=== PATIENT | male | born 1965 | race Caucasian/White ===

== ENCOUNTER 2022-01-26 19:05 | Inpatient (IN) | payer OTHER, SELFPAY ==
--- NOTE | ~2022-01-26 | XR_ITS ---
EXAMINATION: XR CHEST CLINICAL INFORMATION: Leukocytosis COMPARISON: None TECHNIQUE: Frontal view of the chest was obtained. FINDINGS: No significant abnormality is noted involving the heart, lungs, mediastinum, bony thorax or soft tissues. XR/XR chest 1V IMPRESSION: Unremarkable examination.
[2022-01-26 19:32] VITALS: BP 121/70; PULSE 65; RESP 18; TEMP 36.5; O2SAT 96; BMI 31.1
--- NOTE | 2022-01-26 21:04 | ED.PSYCH ---
HPI - Psych General Chief Complaint: Psychiatric Symptoms Stated Complaint: SI, CRISIS, poked himself in the eye as well Time Seen by Provider: 01/26/22 19:48 Source: patient Mode of arrival: ambulatory Limitations: no limitations History of Present Illness HPI Narrative: 57-year-old male with a PMHx of depression on Prozac, presenting with depression, requesting detox, and left eye injury. Patient reports that he was using heroin today and then he believes that he dosed off and poked himself in the eye with his finger. He states that since then his eye has been irritated, he has been having trouble seeing out of it. He denies any foreign body sensation. He also reports that he has been dealing with increasing depression recently. He tells me that he had 2 family members kill themselves recently and that he believes that this has been contributing. Tells me he wants heroin detox and if we dont help him states then he will kill himself. Denies HI. Denies visual, auditory and tactile hallucinations. Denies medical complaints other than left eye discomfort. Related Data Home Medications Medication Instructions Recorded Confirmed fluoxetine 20 mg capsule (Prozac) 40 mg PO DAILY 01/26/22 01/26/22 nicotine 21 mg/24 hr daily 1 patch transdermal DAILY 01/26/22 01/26/22 transdermal patch quetiapine 50 mg tablet (Seroquel) 50 mg PO DAILY 01/26/22 01/26/22 Allergies Allergy/AdvReac Type Severity Reaction Status Date / Time lisinopril [LISINOPRIL] Allergy Unknown KIDNEY Unverified 01/21/20 15:31 FAILURE codeine [CODEINE] AdvReac Unknown RASH Unverified 01/21/20 15:31 hydrocodone [From VICODIN] AdvReac Unknown RASH Unverified 01/21/20 15:31 ibuprofen [IBUPROFEN] AdvReac Unknown EDEMA Unverified 01/21/20 15:31 Review of Systems Review of Systems: Constitutional : No Fever, No Chills ENT/Mouth : No Ear Pain, No Nasal Congestion, No sore throat Eyes: + Eye Pain, No Swelling, No Redness Cardiovascular : No Chest Pain, No SOB Respiratory : No Cough, No Sputum, No Dyspnea Gastrointestinal : No Nausea, No Vomiting, No Diarrhea, No Hematochezia, No Melena Genitourinary : No Dysuria, No Urinary Frequency, No Hematuria Musculoskeletal : No Myalgias Skin : No Skin Lesions, No rash Neuro : No Weakness, No Numbness, No Paresthesias, No Dizziness, No Headache Psych : positive Anxiety, positive Depression, positive SI/HI All other systems reviewed and are negative Yes all other systems are reviewed and are negative [facility] Past Medical History Attestation statement: The following information was validated with the patient. Source: old records reviewed and nursing notes reviewed Social History Social History Advance Directives: No Advance Directives Information Provided: No Physical Exam Vital Signs: Vital Signs: Last Vital Signs Temp 97.7 F 01/26/22 19:32 Pulse 65 01/26/22 19:32 Resp 18 01/26/22 19:32 BP 121/70 01/26/22 19:32 Pulse Ox 96 01/26/22 19:32 O2 Del Method 01/26/22 19:32 BMI result Body Mass Index 31.1 vss Appearance: Alert.? Oriented X3.? No acute distress.?Unkempt Head: Normocephalic, atraumatic, no step-offs or deformities Eyes: Pupils equal, round and reactive to light.? ENT: Pharynx normal.? Neck: Normal inspection.? Neck supple.? CVS: Normal heart rate and rhythm.? Pulses normal.? Respiratory: No respiratory distress.? Breath sounds normal.? Abdomen: Soft and nontender.? Skin: Skin warm and dry.? Normal skin color.? Normal skin turgor.? Extremities: No lower extremity edema.? No calf ttp. 5/5 strength to bilateral upper and lower extremities Neuro: Oriented X 3.? No motor deficit.? No sensory deficit. CN 2-12 intact Course Reevaluation(s) Reevaluation #1: Patient's CBC with leukocytosis, likely reactive, patient is noted to have a new kidney injury BUN of 23 and creatinine of 1.92, currently being hydrated with 2 L of fluids. CPK 2360 concerning for rhabdomyolysis. Patient with corneal abrasion on fluorescein staining, will be given erythromycin ointment for eyes. No signs of glob rupture or sidels sign. Patient continues to touch eye. Time: 00:10 Reevaluation #2: Patient will be admitted to hospital for further evaluation and tx. Time: 00:20 MDM - Psych MDM Narrative Medical decision making narrative: 2100 57-year-old male presents with vague SI complaints and left eye pain status post dosing often using heroin, thinks he may have poked his eye. Physical examination benign. Will rule out corneal abrasion, unlikely that this is a globe rupture. No signs of foreign body in eye. Will do a fluorescein stain with tetracaine. Unlikely wet macular degeneration or closed angle glaucoma. Plan at this time is medical clearance and evaluation by the behavioral health team. Medical Records Attestation: I reviewed the patient's medical records. Lab Data Attestation: I reviewed the patient's lab results. Result diagrams: 01/26/22 22:08 01/26/22 22:08 Labs: Lab Results 01/26/22 01/26/22 01/26/22 Range/Units 22:08 22:08 22:08 WBC 20.2 H (4.8-10.8) X10*3/uL RBC 5.48 (4.60-5.80) X10*6/uL Hgb 16.0 (14.0-18.0) g/dl Hct 46.5 (42.0-52.0) % MCV 84.9 (80.0-98.0) fL MCH 29.2 (27.0-33.0) pg MCHC 34.4 (31.0-36.0) g/dl RDW 12.5 (11.0-16.0) % Plt Count 243 (160-400) X10*3/uL MPV 8.7 L (9.4-12.4) fL Immature Gran % (Auto) 0.4 (0.0-0.4) % Neut % (Auto) 64.9 (45-73) % Lymph % (Auto) 25.3 (20-40) % [place] % (Auto) 8.2 (2-11) % Eos % (Auto) 0.7 (0-4) % Baso % (Auto) 0.5 (0-2) % Lymph # (Auto) 5.1 H (1.2-4.9) X10*3/uL [place] # (Auto) 1.7 H (0.1-1.2) X10*3/uL Eos # (Auto) 0.1 (0.0-0.4) X10*3/uL Baso # (Auto) 0.1 (0.0-0.2) X10*3/uL Abs Immat Gran (auto) 0.08 H (0.00-0.03) X10*3/uL Absolute Neuts (auto) 13.1 H (2.0-8.3) x10*3/uL Absolute Nucleated RBC 0.000 (0.0-0.012) X10*3/uL Nucleated RBC % (auto) 0.0 (0.0-0.2) /100WBC Smear Tech's Comments VERIFIED Sodium 133 L (135-145) mmol/L Potassium 4.0 (3.3-5.1) mmol/L Chloride 98 (96-108) mmol/L Carbon Dioxide 20 L (22-29) mmol/L Anion Gap 19 (12-20) BUN 23 H (9-16) mg/dL Creatinine 1.92 H (0.5-1.4) mg/dL Estim Creat Clear Calc 46.5 Estimated GFR 37 Random Glucose 136 H (60-115) mg/dL Calcium 9.4 (8.4-10.2) mg/dL Magnesium 2.4 (1.6-2.6) mg/dL Total Bilirubin 0.9 (0.0-1.0) mg/dL AST 51 H (5-37) U/L ALT 61 H (0-40) U/L Alkaline Phosphatase 76 (39-117) U/L Total Creatine Kinase 2360 H (38-174) U/L Total Protein 7.2 (6.5-8.0) g/dL Albumin 4.2 (3.5-5.0) g/dL Salicylates < 5.0 L (15-30) mg/dL Acetaminophen < 1 (<30) mcg/mL Ethyl Alcohol < 10 mg/dL COVID-19 (YANICK) (Negative) COVID-19 Clin Com 01/26/22 Range/Units 22:10 WBC (4.8-10.8) X10*3/uL RBC (4.60-5.80) X10*6/uL Hgb (14.0-18.0) g/dl Hct (42.0-52.0) % MCV (80.0-98.0) fL MCH (27.0-33.0) pg MCHC (31.0-36.0) g/dl RDW (11.0-16.0) % Plt Count (160-400) X10*3/uL MPV (9.4-12.4) fL Immature Gran % (Auto) (0.0-0.4) % Neut % (Auto) (45-73) % Lymph % (Auto) (20-40) % [place] % (Auto) (2-11) % Eos % (Auto) (0-4) % Baso % (Auto) (0-2) % Lymph # (Auto) (1.2-4.9) X10*3/uL [place] # (Auto) (0.1-1.2) X10*3/uL Eos # (Auto) (0.0-0.4) X10*3/uL Baso # (Auto) (0.0-0.2) X10*3/uL Abs Immat Gran (auto) (0.00-0.03) X10*3/uL Absolute Neuts (auto) (2.0-8.3) x10*3/uL Absolute Nucleated RBC (0.0-0.012) X10*3/uL Nucleated RBC % (auto) (0.0-0.2) /100WBC Smear Tech's Comments Sodium (135-145) mmol/L Potassium (3.3-5.1) mmol/L Chloride (96-108) mmol/L Carbon Dioxide (22-29) mmol/L Anion Gap (12-20) BUN (9-16) mg/dL Creatinine (0.5-1.4) mg/dL Estim Creat Clear Calc Estimated GFR Random Glucose (60-115) mg/dL Calcium (8.4-10.2) mg/dL Magnesium (1.6-2.6) mg/dL Total Bilirubin (0.0-1.0) mg/dL AST (5-37) U/L ALT (0-40) U/L Alkaline Phosphatase (39-117) U/L Total Creatine Kinase (38-174) U/L Total Protein (6.5-8.0) g/dL Albumin (3.5-5.0) g/dL Salicylates (15-30) mg/dL Acetaminophen (<30) mcg/mL Ethyl Alcohol mg/dL COVID-19 (YANICK) Negative (Negative) COVID-19 Clin Com See Note Critical Care Time Critical Care Time Critical Care Time: No Discharge Plan Discharge Clinical Impression: Polysubstance abuse, Rhabdomyolysis, Abrasion, corneal Patient Disposition: Admitted As Inpatient
[2022-01-26 22:16] LABS: Basophils Absolute Auto 0.1 X10*3/uL (0.0-0.2); Basophils Percent Auto 0.5 % (0-2); Eosinophils Absolute Auto 0.1 X10*3/uL (0.0-0.4); Eosinophils Percent Auto 0.7 % (0-4); Hematocrit 46.5 % (42.0-52.0); Imm Gran Abs Auto 0.08 X10*3/uL (0.00-0.03); Imm Gran Pct Auto 0.4 % (0.0-0.4); Lymphocytes Absolute Auto 5.1 X10*3/uL (1.2-4.9); Lymphocytes Percent Auto 25.3 % (20-40); MANUAL DIFF FLAG SCAN; Mean Corpuscular HGB Conc 34.4 g/dl (31.0-36.0); Mean Corpuscular Hemoglobin 29.2 pg (27.0-33.0); Mean Corpuscular Volume 84.9 fL (80.0-98.0); Mean Platelet Volume 8.7 fL (9.4-12.4); Monocytes Absolute Auto 1.7 X10*3/uL (0.1-1.2); Monocytes Percent Auto 8.2 % (2-11); Neutrophils Absolute Auto 13.1 x10*3/uL (2.0-8.3); Neutrophils Percent Auto 64.9 % (45-73); Platelet Count 243 X10*3/uL (160-400); Red Blood Count 5.48 X10*6/uL (4.60-5.80); Red Cell Distribution Width 12.5 % (11.0-16.0); SCAN SMEAR FLAG 1; White Blood Count 20.2 X10*3/uL (4.8-10.8)
[2022-01-26 22:29] LABS: Ethanol < 10 mg/dL
[2022-01-26 22:31] LABS: COVID-19 Test Negative (Negative)
[2022-01-26 22:32] LABS: Acetaminophen LAB < 1 mcg/mL (<30); Alanine Aminotransferase 61 U/L (0-40); Albumin Level 4.2 g/dL (3.5-5.0); Alkaline Phosphatase 76 U/L (39-117); Anion Gap 19 (12-20); Aspartate Amino Transferase 51 U/L (5-37); Bilirubin Total 0.9 mg/dL (0.0-1.0); Blood Urea Nitrogen 23 mg/dL (9-16); Calcium 9.4 mg/dL (8.4-10.2); Carbon Dioxide 20 mmol/L (22-29); Chloride 98 mmol/L (96-108); Creatinine Clr Calc Pharmacy 46.5; Estimated Glomerular Filt Rate 37; Glucose Random 136 mg/dL (60-115); Magnesium 2.4 mg/dL (1.6-2.6); Salicylate < 5.0 mg/dL (15-30); Sodium 133 mmol/L (135-145); Total Protein 7.2 g/dL (6.5-8.0)
[2022-01-26 22:39] LABS: SLIDE REVIEW VERIFIED
--- NOTE | 2022-01-26 22:55 | PHA.MEDREC ---
Pharmacy Consult ? Medication Reconciliation Pharmacy has completed the medication reconciliation. Verbal list obtained from ID pt states that he has not taken his meds for 2 months
--- NOTE | 2022-01-27 | ECG_ITS ---
Test Reason : TACHYCARDIA Blood Pressure : / mmHG Vent. Rate : 051 BPM Atrial Rate : 051 BPM P-R Int : 182 ms QRS Dur : 078 ms QT Int : 434 ms P-R-T Axes : 045 065 032 degrees QTc Int : 400 ms Sinus bradycardia Otherwise normal ECG When compared with ECG of 14-MAR-2004 19:55, Vent. rate has decreased BY 35 BPM Referred By: Magdalena Gan Electronically Signed By:ROCIO GONZALEZ
[2022-01-27] MEDS: 0.9 % Sodium Chloride 1,000 ML 999 ML IV ×3 (00:10→01:48)
[2022-01-27] MEDS: Tetrahydrozoline HCl 0.05% Oph 15 ML DRPBTL 2 DROP EYE-BOTH (00:11)
[2022-01-27] MEDS: Fluorescein Sodium STRIP 1 STRIP EYE-BOTH (00:11)
--- NOTE | 2022-01-27 00:41 | PM.IMHP ---
History of Present Illness Date of Service: 01/27/22 Chief Complaint: eye pain, detox 57-year-old male with past medical history of heroin abuse presents to the hospital with complaints of left eye pain, as well as wanting detox. Patient reports that he was very high, was found on the street by EMS, after he was consuming heroin. Patient reports that he must have dozed off and poked himself in the Left eye. He denies any trauma or injury to the eye otherwise. He reports no use of contact lenses. And no contact with for an object. Is patient reports that he is interested in detoxing from heroin. Patient at this time denies any chest pain, no shortness of breath, no abdominal pain, no nausea or vomiting, no diarrhea constipation, no urinary symptoms and no lower extremity edema. No headache or change in vision, no numbness or weakness or tingling. On arrival to the ED patient with dynamic least stable no significant abnormal vitals Labs are significant for WBC count of 18.3, sodium 133, BUN of 23, creatinine of 1.92 with no baseline, CKD of 2360, AST of 51, ALT of 61, patient started on IV fluids, and will be admitted for further management Review of Systems Review of Systems: Yes all other systems are reviewed and are negative [facility] Medical History (Updated 01/27/22 @ 06:49 by Eliseo Argueta MD) Depression with anxiety Polysubstance abuse Family History (Updated 01/27/22 @ 06:46 by Eliseo Argueta MD) Other No family history of coronary artery disease Surgical History (Updated 01/27/22 @ 06:46 by Eliseo Argueta MD) No pertinent past surgical history Social History (Updated 01/27/22 @ 06:46 by Eliseo Argueta MD) Alcohol intake: current Use of substances other than those prescribed or required for medical reasons: Yes Substance Use Type: IV Drugs Advance Directives: No Advance Directives Information Provided: No Meds Allergies Allergy/AdvReac Type Severity Reaction Status Date / Time lisinopril [LISINOPRIL] Allergy Unknown KIDNEY Unverified 01/21/20 15:31 FAILURE codeine [CODEINE] AdvReac Unknown RASH Unverified 01/21/20 15:31 hydrocodone [From VICODIN] AdvReac Unknown RASH Unverified 01/21/20 15:31 ibuprofen [IBUPROFEN] AdvReac Unknown EDEMA Unverified 01/21/20 15:31 Active Medications: Current Medications Acetaminophen (Acetaminophen 325 Mg Tablet) 650 mg PO Q6H PRN PRN Reason: Pain, Mild (Pain Scale 1-3) Docusate Sodium (Docusate Sodium 100 Mg Capsule) 100 mg PO DAILY PRN PRN Reason: Constipation Enoxaparin Sodium (Enoxaparin Sodium 40 Mg/0.4 Ml Syringe) 40 mg SUBCUT Q24H [facility]INA Sodium Chloride (Ns) 1,000 mls @ 999 mls/hr IV .Q1H1M [facility] Stop: 01/27/22 01:15 Sodium Chloride (Ns) 1,000 mls @ 999 mls/hr IV .Q1H1M [facility] Stop: 01/27/22 01:15 Sodium Chloride (Ns) 1,000 mls @ 100 mls/hr IVCONT .Q10H [facility]ATARINA Ondansetron HCl (Ondansetron Hcl 4 Mg/2 Ml Vial) 4 mg IVPUSH Q8H PRN PRN Reason: Nausea and Vomiting Pharmacy Consult (Consult Rx Perform Med Rec) 1 each MISCELLANE ONCE PRN PRN Reason: Consult order Sodium Chloride (0.9 % Sodium Chloride Flush 3 Ml Syringe) 3 ml IVFLUSH QSHIFT [facility] Home Medications Medication Instructions Recorded Confirmed Last Taken Type fluoxetine 20 mg capsule (Prozac) 40 mg PO DAILY 01/26/22 01/26/22 Unknown History nicotine 21 mg/24 hr daily 1 patch transdermal DAILY 01/26/22 01/26/22 Unknown History transdermal patch quetiapine 50 mg tablet (Seroquel) 50 mg PO DAILY 01/26/22 01/26/22 Unknown History Physical Exam Vital Signs and Narrative: Vital Signs: Last Vital Signs Temp 97.7 F 01/26/22 19:32 Pulse 65 01/26/22 19:32 Resp 18 01/26/22 19:32 BP 121/70 01/26/22 19:32 Pulse Ox 96 01/26/22 19:32 O2 Del Method 01/26/22 19:32 BMI result Body Mass Index 31.1 Const: General: cooperative and no acute distress Orientation/consciousness: patient oriented x3 Eyes: Other: left eye very inflamed, is unable to open it fully, very sensitive to light, lacrimating Resp: Effort & Inspection: normal respiratory effort Auscultation: clear to auscultation bilaterally Cardio: Rate: regular rate Rhythm: regular rhythm GI: Palpation (GI): Soft to palpation Auscultation: normal bowel sounds Skin: General skin exam: no rashes or lesions noted Neuro: General: patient oriented x3 Cognition (Neuro): normal cognition Extrem: General: Yes normal to inspection and Yes no pedal edema Results Labs CBC and Chem 7: 01/27/22 01:15 01/26/22 22:08 Labs: Laboratory Results - last 24 hr 01/26/22 01/26/22 01/26/22 22:08 22:08 22:08 MCV 84.9 MCH 29.2 MCHC 34.4 RDW 12.5 Plt Count 243 MPV 8.7 L Immature Gran % (Auto) 0.4 Neut % (Auto) 64.9 Lymph % (Auto) 25.3 [place] % (Auto) 8.2 Eos % (Auto) 0.7 Baso % (Auto) 0.5 Lymph # (Auto) 5.1 H [place] # (Auto) 1.7 H Eos # (Auto) 0.1 Baso # (Auto) 0.1 Abs Immat Gran (auto) 0.08 H Absolute Neuts (auto) 13.1 H Absolute Nucleated RBC 0.000 Nucleated RBC % (auto) 0.0 Smear Tech's Comments VERIFIED Anion Gap 19 Estim Creat Clear Calc 46.5 Estimated GFR 37 Random Glucose 136 H Calcium 9.4 Magnesium 2.4 Total Bilirubin 0.9 AST 51 H ALT 61 H Alkaline Phosphatase 76 Total Creatine Kinase 2360 H Total Protein 7.2 Albumin 4.2 Salicylates < 5.0 L Acetaminophen < 1 Ethyl Alcohol < 10 COVID-19 (YANICK) COVID-19 Clin Com 01/26/22 22:10 MCV MCH MCHC RDW Plt Count MPV Immature Gran % (Auto) Neut % (Auto) Lymph % (Auto) [place] % (Auto) Eos % (Auto) Baso % (Auto) Lymph # (Auto) [place] # (Auto) Eos # (Auto) Baso # (Auto) Abs Immat Gran (auto) Absolute Neuts (auto) Absolute Nucleated RBC Nucleated RBC % (auto) Smear Tech's Comments Anion Gap Estim Creat Clear Calc Estimated GFR Random Glucose Calcium Magnesium Total Bilirubin AST ALT Alkaline Phosphatase Total Creatine Kinase Total Protein Albumin Salicylates Acetaminophen Ethyl Alcohol COVID-19 (YANICK) Negative COVID-19 Clin Com See Note Imaging Radiologist's Impressions: Impressions Chest X-Ray 01/26/22 23:22 IMPRESSION: Unremarkable examination. Assessment and Plan (1) Rhabdomyolysis: Qualifiers: Rhabdomyolysis type: non-traumatic Qualified Code(s): M62.82 - Rhabdomyolysis Status: Acute (2) Polysubstance abuse: Status: Acute (3) Abrasion, corneal: Qualifiers: Encounter type: initial encounter Laterality: left Qualified Code(s): S05.02XA - Injury of conjunctiva and corneal abrasion without foreign body, left eye, initial encounter Status: Acute (4) JAE (acute kidney injury): Status: Acute Plan 57-year-old male with past medical history of depression and anxiety presents to the hospital with complaints of eye pain as well as wanting to detox from drugs found to rhabdo, JAE as well as corneal abrasion # rhabdomyolysis - likely secondary to IV drug use, dehydration, - will start with IV fluids - follow CPK # JAE - likely secondary to dehydration - IV fluids - follow BMP # corneal abrasion - no evidence of foreign body, no presence of contact lenses - will treat with topical antibiotic as well as topical NSAIDs for pain control - if does not improve consider orbital CT to rule out foreign body although patient denies any direct trauma or injury to the eye and reports only poking himself in the eye while dosing of # polysubstance abuse - care team consulted # depression anxiety - continue mood stabilizers DVT prophylaxis: Lovenox Pt will require a minimum 2 night hospital stay for IV fluids Quality Stroke Does the patient have a stroke diagnosis?: No VTE Prior VTE?: No VTE Risk Level:: Medical - moderate - high VTE Device Contraindication: Treatment Not Tolerated VTE Drug Contraindication: N/A - Med Ordered
[2022-01-27] MEDS: Erythromycin Base 0.5% Oph Oin 1 GM TUBE 1 CM EYE-LEFT ×2 (01:47→09:17)
[2022-01-27 01:50] LABS: Basophils Absolute Auto 0.1 X10*3/uL (0.0-0.2); Basophils Percent Auto 0.4 % (0-2); Eosinophils Absolute Auto 0.2 X10*3/uL (0.0-0.4); Eosinophils Percent Auto 1.3 % (0-4); Hematocrit 45.2 % (42.0-52.0); Hemoglobin 15.4 g/dl (14.0-18.0); Imm Gran Abs Auto 0.07 X10*3/uL (0.00-0.03); Imm Gran Pct Auto 0.4 % (0.0-0.4); Lymphocytes Absolute Auto 5.7 X10*3/uL (1.2-4.9); Lymphocytes Percent Auto 30.9 % (20-40); MANUAL DIFF FLAG SCAN; Mean Corpuscular HGB Conc 34.1 g/dl (31.0-36.0); Mean Corpuscular Hemoglobin 28.9 pg (27.0-33.0); Mean Platelet Volume 8.9 fL (9.4-12.4); Monocytes Absolute Auto 1.5 X10*3/uL (0.1-1.2); Neutrophils Absolute Auto 10.8 x10*3/uL (2.0-8.3); Platelet Count 238 X10*3/uL (160-400); Red Blood Count 5.32 X10*6/uL (4.60-5.80); Red Cell Distribution Width 12.6 % (11.0-16.0); SCAN SMEAR FLAG 1; White Blood Count 18.3 X10*3/uL (4.8-10.8)
[2022-01-27] MEDS: Enoxaparin Sodium 40 MG/0.4 ML SYRINGE SUBCUT (01:50)
[2022-01-27] MEDS: Acetaminophen 325 MG TABLET 650 MG PO (01:51)
[2022-01-27 02:03] LABS: Lactic Acid 1.4 mmol/L (0.5-2.0)
[2022-01-27] MEDS: 0.9 % Sodium Chloride 1,000 ML 100 ML IVCONT ×3 (04:06→22:02)
[2022-01-27 06:06] VITALS: BP 99/60; PULSE 50; RESP 16; TEMP 36.7; O2SAT 96
[2022-01-27 07:07] LABS: Basophils Absolute Auto 0.1 X10*3/uL (0.0-0.2); Basophils Percent Auto 0.7 % (0-2); Eosinophils Absolute Auto 0.2 X10*3/uL (0.0-0.4); Eosinophils Percent Auto 1.4 % (0-4); Hematocrit 43.4 % (42.0-52.0); Hemoglobin 14.7 g/dl (14.0-18.0); Imm Gran Abs Auto 0.05 X10*3/uL (0.00-0.03); Imm Gran Pct Auto 0.4 % (0.0-0.4); Lymphocytes Absolute Auto 5.1 X10*3/uL (1.2-4.9); Lymphocytes Percent Auto 37.6 % (20-40); MANUAL DIFF FLAG SCAN; Mean Corpuscular HGB Conc 33.9 g/dl (31.0-36.0); Mean Corpuscular Hemoglobin 29.1 pg (27.0-33.0); Mean Corpuscular Volume 85.8 fL (80.0-98.0); Monocytes Absolute Auto 0.9 X10*3/uL (0.1-1.2); Monocytes Percent Auto 6.6 % (2-11); Neutrophils Absolute Auto 7.3 x10*3/uL (2.0-8.3); Neutrophils Percent Auto 53.3 % (45-73); Platelet Count 208 X10*3/uL (160-400); Red Blood Count 5.06 X10*6/uL (4.60-5.80); Red Cell Distribution Width 12.6 % (11.0-16.0); SCAN SMEAR FLAG 1; White Blood Count 13.6 X10*3/uL (4.8-10.8)
[2022-01-27 07:59] LABS: SLIDE REVIEW VERIFIED
[2022-01-27 08:03] LABS: Anion Gap 15 (12-20); Blood Urea Nitrogen 20 mg/dL (9-16); Calcium 8.4 mg/dL (8.4-10.2); Carbon Dioxide 18 mmol/L (22-29); Chloride 107 mmol/L (96-108); Creatinine Clr Calc Pharmacy 69.8; Estimated Glomerular Filt Rate 58; Glucose Random 113 mg/dL (60-115); Potassium 4.5 mmol/L (3.3-5.1); Sodium 135 mmol/L (135-145)
[2022-01-27] MEDS: FLUoxetine HCl 20 MG CAPSULE 40 MG PO (09:16)
[2022-01-27] MEDS: Nicotine 21 MG PATCH.TD24 TRANSDERMA (09:17)
--- NOTE | 2022-01-27 09:18 | PM.EVENT ---
Event Note Date of Service: 01/27/22 Event Note: The patient was seen and evaluated this morning Denies any suicidal ideation at this point Kidney function improving Reported mild symptoms of withdrawal Discussed about Suboxone and methadone, he preferred to start methadone and refuses Suboxone Care team and addiction team would follow
[2022-01-27 11:25] LABS: Appearance Urine Clear; Color Urine Yellow; Glucose Urine UA Negative (Negative); Leukocyte Esterase Urine Negative (Negative); Nitrite Urine Negative (Negative); PH 5.5 (5.0-9.0); Urine Blood Negative (Negative); Urine Ketones Negative (Negative); Urine Protein Negative (Neg-Trace)
[2022-01-27 11:31] LABS: Amphetamine Screen Urine Not Detected (Not Detect); Barbiturates, Urine Not Detected (Not Detect); Benzodiazepines Screen Urine Not Detected (Not Detect); Cannabinoid Screen Urine Not Detected (Not Detect); Cocaine Screen Urine POSITIVE (Not Detect); Fentanyl, urine POSITIVE (Not Detect); Opiate Screen Urine Not Detected (Not Detect); Phencyclidine Screen Urine Not Detected (Not Detect)
[2022-01-27] MEDS: methADONE HCl 20 MG/2 ML ORAL.CONC PO (12:46)
--- NOTE | 2022-01-27 13:32 | HO.ADDICT_ITS ---
History of Present Illness Date of Service: 01/27/2022 Chief Complaint: JAE, rhabdo Reason for Consult: OUD Requesting physician: Magdalena Gan Discussed with referring provider: Yes Sources of Information: patient interviewed and chart reviewed HPI Narrative: Patient is a 57 year old male currently medically admitted with JAE and rhabdomyolysis. Presented to the ED initially with reported suicidal ideation secondary to substance use. Patient see in room 15 of main ED. Sitting in recliner, awake, alrt, pleasant and engaged in interview. Reporting he has been using opiates since he was about 25--started off with oxycodone then progressed to heroin Currently using about 2 bundles (20 bags) daily. Denies any history of overdose Denies any other substance use, including alcohol one [facility] admission several years ago Longest period in recovery a few months on several occasions Currently prescribed SUboxone, however recently stopped taking them after he experienced what sounds like precipitated withdrawal. Was reporting withdrawal sx--runny nose, restlessness, body aches. Agreeable to methadone. Received 20mg X1--reporting positive effect. Review of Systems Constitutional: Reports as per HPI Diagnostics Vital Signs (24Hr): Vital Signs - 24 hr 01/26/22 19:32 01/27/22 06:06 Temperature 97.7 F 98.1 F Pulse Rate 65 50 Respiratory Rate 18 16 Blood Pressure 121/70 99/60 Pulse Oximetry 96 96 Oxygen Delivery Method Room Air Room Air BMI result Body Mass Index 31.1 Labs Results: 01/27/22 06:50 01/27/22 06:50 Labs: Laboratory Results - last 48 hr 01/26/22 01/26/22 01/26/22 22:08 22:08 22:08 WBC 20.2 H RBC 5.48 Hgb 16.0 Hct 46.5 MCV 84.9 MCH 29.2 MCHC 34.4 RDW 12.5 Plt Count 243 MPV 8.7 L Immature Gran % (Auto) 0.4 Neut % (Auto) 64.9 Lymph % (Auto) 25.3 [place] % (Auto) 8.2 Eos % (Auto) 0.7 Baso % (Auto) 0.5 Lymph # (Auto) 5.1 H [place] # (Auto) 1.7 H Eos # (Auto) 0.1 Baso # (Auto) 0.1 Abs Immat Gran (auto) 0.08 H Absolute Neuts (auto) 13.1 H Absolute Nucleated RBC 0.000 Nucleated RBC % (auto) 0.0 Smear Tech's Comments VERIFIED Sodium 133 L Potassium 4.0 Chloride 98 Carbon Dioxide 20 L Anion Gap 19 BUN 23 H Creatinine 1.92 H Estim Creat Clear Calc 46.5 Estimated GFR 37 Random Glucose 136 H Lactic Acid Calcium 9.4 Magnesium 2.4 Total Bilirubin 0.9 AST 51 H ALT 61 H Alkaline Phosphatase 76 Total Creatine Kinase 2360 H Total Protein 7.2 Albumin 4.2 Urine Color Urine Appearance Urine pH Ur Specific [place] Urine Protein Urine Glucose (UA) Urine Ketones Urine Blood Urine Nitrite Ur Leukocyte Esterase Salicylates < 5.0 L Urine Opiates Screen Urine Fentanyl Screen Acetaminophen < 1 Ur Barbiturates Screen Ur Phencyclidine Scrn Ur Amphetamines Screen U Benzodiazepines Scrn Urine Cocaine Screen U Marijuana (THC) Screen Ethyl Alcohol < 10 COVID-19 ([facility]AN[facility]) COVID-19 Clin Com 01/26/22 01/27/22 01/27/22 22:10 01:15 01:15 WBC 18.3 H RBC 5.32 Hgb 15.4 Hct 45.2 MCV 85.0 MCH 28.9 MCHC 34.1 RDW 12.6 Plt Count 238 MPV 8.9 L Immature Gran % (Auto) 0.4 Neut % (Auto) 59.0 Lymph % (Auto) 30.9 [place] % (Auto) 8.0 Eos % (Auto) 1.3 Baso % (Auto) 0.4 Lymph # (Auto) 5.7 H [place] # (Auto) 1.5 H Eos # (Auto) 0.2 Baso # (Auto) 0.1 Abs Immat Gran (auto) 0.07 H Absolute Neuts (auto) 10.8 H Absolute Nucleated RBC 0.000 Nucleated RBC % (auto) 0.0 Smear Tech's Comments Sodium Potassium Chloride Carbon Dioxide Anion Gap BUN Creatinine Estim Creat Clear Calc Estimated GFR Random Glucose Lactic Acid 1.4 Calcium Magnesium Total Bilirubin AST ALT Alkaline Phosphatase Total Creatine Kinase Total Protein Albumin Urine Color Urine Appearance Urine pH Ur Specific [place] Urine Protein Urine Glucose (UA) Urine Ketones Urine Blood Urine Nitrite Ur Leukocyte Esterase Salicylates Urine Opiates Screen Urine Fentanyl Screen Acetaminophen Ur Barbiturates Screen Ur Phencyclidine Scrn Ur Amphetamines Screen U Benzodiazepines Scrn Urine Cocaine Screen U Marijuana (THC) Screen Ethyl Alcohol COVID-19 (YANICK) Negative COVID-19 Clin Com See Note 01/27/22 01/27/22 01/27/22 06:50 06:50 06:50 WBC 13.6 H RBC 5.06 Hgb 14.7 Hct 43.4 MCV 85.8 MCH 29.1 MCHC 33.9 RDW 12.6 Plt Count 208 MPV 9.0 L Immature Gran % (Auto) 0.4 Neut % (Auto) 53.3 Lymph % (Auto) 37.6 [place] % (Auto) 6.6 Eos % (Auto) 1.4 Baso % (Auto) 0.7 Lymph # (Auto) 5.1 H [place] # (Auto) 0.9 Eos # (Auto) 0.2 Baso # (Auto) 0.1 Abs Immat Gran (auto) 0.05 H Absolute Neuts (auto) 7.3 Absolute Nucleated RBC 0.000 Nucleated RBC % (auto) 0.0 Smear Tech's Comments VERIFIED Sodium 135 Potassium 4.5 Chloride 107 Carbon Dioxide 18 L Anion Gap 15 BUN 20 H Creatinine 1.28 Estim Creat Clear Calc 69.8 Estimated GFR 58 Random Glucose 113 Lactic Acid Calcium 8.4 D Magnesium Total Bilirubin AST ALT Alkaline Phosphatase Total Creatine Kinase 2439 H Cancelled Total Protein Albumin Urine Color Urine Appearance Urine pH Ur Specific [place] Urine Protein Urine Glucose (UA) Urine Ketones Urine Blood Urine Nitrite Ur Leukocyte Esterase Salicylates Urine Opiates Screen Urine Fentanyl Screen Acetaminophen Ur Barbiturates Screen Ur Phencyclidine Scrn Ur Amphetamines Screen U Benzodiazepines Scrn Urine Cocaine Screen U Marijuana (THC) Screen Ethyl Alcohol COVID-19 (YANICK) COVID-19 Clin Com 01/27/22 01/27/22 01/27/22 10:51 10:51 10:51 WBC RBC Hgb Hct MCV MCH MCHC RDW Plt Count MPV Immature Gran % (Auto) Neut % (Auto) Lymph % (Auto) [place] % (Auto) Eos % (Auto) Baso % (Auto) Lymph # (Auto) [place] # (Auto) Eos # (Auto) Baso # (Auto) Abs Immat Gran (auto) Absolute Neuts (auto) Absolute Nucleated RBC Nucleated RBC % (auto) Smear Tech's Comments Sodium Potassium Chloride Carbon Dioxide Anion Gap BUN Creatinine Estim Creat Clear Calc Estimated GFR Random Glucose Lactic Acid Calcium Magnesium Total Bilirubin AST ALT Alkaline Phosphatase Total Creatine Kinase Total Protein Albumin Urine Color Yellow Cancelled Urine Appearance Clear Cancelled Urine pH 5.5 Cancelled Ur Specific [place] 1.010 Cancelled Urine Protein Negative Cancelled Urine Glucose (UA) Negative Cancelled Urine Ketones Negative Cancelled Urine Blood Negative Cancelled Urine Nitrite Negative Cancelled Ur Leukocyte Esterase Negative Cancelled Salicylates Urine Opiates Screen Not Detected Urine Fentanyl Screen POSITIVE H Acetaminophen Ur Barbiturates Screen Not Detected Ur Phencyclidine Scrn Not Detected Ur Amphetamines Screen Not Detected U Benzodiazepines Scrn Not Detected Urine Cocaine Screen POSITIVE H U Marijuana (THC) Screen Not Detected Ethyl Alcohol COVID-19 (YANICK) COVID-19 Clin Com Imaging Radiology Impressions: ITS Impressions Chest X-Ray 01/26/22 23:22 IMPRESSION: Unremarkable examination. Mental Status Exam Mental Status Exam Patient Appearance: Appropriate Patient Orientation: Person, Place, Time and Situation Level of Consciousness: Awake and Appropriate Patient Behavior: Appropriate and Cooperative Mood Description: Calm Affect Description: Calm Patient Cognition Impaired: No Thought Process: Goal Oriented Thought Content: positive for Goal Oriented Judgement: Fair Medications Medications Current Medications Acetaminophen (Acetaminophen 325 Mg Tablet) 650 mg PO Q6H PRN PRN Reason: Pain, Mild (Pain Scale 1-3) Last Admin: 01/27/22 01:51 Dose: 650 mg Docusate Sodium (Docusate Sodium 100 Mg Capsule) 100 mg PO DAILY PRN PRN Reason: Constipation Enoxaparin Sodium (Enoxaparin Sodium 40 Mg/0.4 Ml Syringe) 40 mg SUBCUT Q24H [facility] Last Admin: 01/27/22 01:50 Dose: 40 mg Erythromycin (Erythromycin Base 0.5% Oph Oin 1 Gm Tube) 1 cm EYE-LEFT QID [facility] Last Admin: 01/27/22 12:48 Dose: Not Given Fluoxetine HCl (Fluoxetine Hcl 20 Mg Capsule) 40 mg PO DAILY [facility] Last Admin: 01/27/22 09:16 Dose: 40 mg Sodium Chloride (Ns) 1,000 mls @ 100 mls/hr IVCONT .Q10H [facility] Last Admin: 01/27/22 09:46 Dose: 100 mls/hr Nicotine (Nicotine 21 Mg Patch.Td24) 21 mg TRANSDERMA DAILY [facility] Last Admin: 01/27/22 09:17 Dose: 21 mg Ondansetron HCl (Ondansetron Hcl 4 Mg/2 Ml Vial) 4 mg IVPUSH Q8H PRN PRN Reason: Nausea and Vomiting Pharmacy Consult (Consult Rx Perform Med Rec) 1 each MISCELLANE ONCE PRN PRN Reason: Consult order Quetiapine Fumarate (Quetiapine Fumarate 50 Mg Tablet) 50 mg PO DAILY [facility] Last Admin: 01/27/22 09:08 Dose: Not Given Quetiapine Fumarate (Quetiapine Fumarate 100 Mg Tablet) 100 mg PO BEDTIME KATARINA Sodium Chloride (0.9 % Sodium Chloride Flush 3 Ml Syringe) 3 ml IVFLUSH QSHIFT [facility] Last Admin: 01/27/22 09:08 Dose: Not Given Allergies Allergies Allergy/AdvReac Type Severity Reaction Status Date / Time lisinopril [LISINOPRIL] Allergy Unknown KIDNEY Unverified 01/21/20 15:31 FAILURE codeine [CODEINE] AdvReac Unknown RASH Unverified 01/21/20 15:31 hydrocodone [From VICODIN] AdvReac Unknown RASH Unverified 01/21/20 15:31 ibuprofen [IBUPROFEN] AdvReac Unknown EDEMA Unverified 01/21/20 15:31 Assessment & Plan Assessment & Plan (1) Opioid use disorder: Status: Acute Code(s): F11.90 - Opioid use, unspecified, uncomplicated Assessment and Plan: * continue to titrate methadone * PRN dose for later this evening if needed(10mg) * 35-40mg AM dose (depending if he received overnight) * Recovery clinical support associate to refer to [facility] for continuation of methadone and start process for possible [facility] admission when medically cleared I spent __35____ minutes with the patient and/or on the patient floor today, greater than?50% of which was spent counseling/coordinating care. PMFSH Past Medical History Medical History (Updated 01/27/22 @ 13:54 by Maggie Ramirez CNP) Depression with anxiety Polysubstance abuse Family History Family History (Updated 01/27/22 @ 06:46 by Eliseo Argueta MD) Other No family history of coronary artery disease Surgical History Surgical History (Updated 01/27/22 @ 06:46 by Eliseo Argueta MD) No pertinent past surgical history Social History Social History (Updated 01/27/22 @ 06:46 by Eliseo Argueta MD) Alcohol intake: current Use of substances other than those prescribed or required for medical reasons: Yes Substance Use Type: IV Drugs Advance Directives: No Advance Directives Information Provided: No
[2022-01-27 14:57] VITALS: BP 163/77; PULSE 56; RESP 16; O2SAT 98
--- NOTE | 2022-01-27 17:04 | MHC.RECOVSUP ---
Recovery Support note: Patient is a 57 year old Icelandic speaking male who presented to [facility] seeking detox. Patient reported SI in the context of his substance use and the possibility of discharging without treatment. Patient is now denying SI. This public relations writer met with patient to discuss substance use and treatment options. Patient reports using 20 bags of heroin a day. Patient reports previous periods of sobriety lasting months and that Suboxone was previously helpful. Patient stopped taking Suboxone after he took it and felt awful afterwards. Education was provided regarding precipitated withdrawal however patient reports he is afraid to take Suboxone again. Discussed methadone maintenance with patient and he expressed interest in starting methadone and connecting with a clinic. Patient reported withdrawal symptoms including nausea and runny nose. Patient reports he would like to go to a [facility] after discharge. This public relations writer discussed with patient that a [facility] bed may not be available on the day of discharge but that he can continue to wait for a bed from the community. Patient acknowledged and is comfortable with this plan. Patient will be referred to [facility] and [facility] on Saturday. Patient is not interested in being referred out of area. [facility] information provided to patient. Patient was medicated with 20mg of methadone and reported improvement in withdrawal symptoms. Patient will be referred to [facility] (phone - [phone], fax - [phone]). Patient provided with information on this clinic and instructed to bring ID and last dose letter to clinic after discharge. Discussed case with Maggie Ramirez NP.
[2022-01-27] MEDS: methADONE HCl 20 MG/2 ML ORAL.CONC 10 MG PO (21:59)
[2022-01-28] VITALS: BP 129/76; PULSE 83; RESP 19; O2SAT 95
[2022-01-28] MEDS: Enoxaparin Sodium 40 MG/0.4 ML SYRINGE SUBCUT (03:06)
[2022-01-28 05:23] LABS: Hematocrit 40.6 % (42.0-52.0); Hemoglobin 13.9 g/dl (14.0-18.0); Mean Corpuscular HGB Conc 34.2 g/dl (31.0-36.0); Mean Corpuscular Hemoglobin 28.9 pg (27.0-33.0); Mean Corpuscular Volume 84.4 fL (80.0-98.0); Mean Platelet Volume 9.5 fL (9.4-12.4); Platelet Count 215 X10*3/uL (160-400); Red Blood Count 4.81 X10*6/uL (4.60-5.80); Red Cell Distribution Width 12.5 % (11.0-16.0); White Blood Count 10.6 X10*3/uL (4.8-10.8)
[2022-01-28 05:59] LABS: Anion Gap 14 (12-20); Blood Urea Nitrogen 8 mg/dL (9-16); Calcium 8.8 mg/dL (8.4-10.2); Carbon Dioxide 20 mmol/L (22-29); Chloride 110 mmol/L (96-108); Estimated Glomerular Filt Rate > 60; Glucose Random 101 mg/dL (60-115); Potassium 3.9 mmol/L (3.3-5.1); Sodium 140 mmol/L (135-145)
--- NOTE | 2022-01-28 08:03 | PC.NURSE ---
patient refusing AM meds and additional fluids. patient expressing he is angry because he is not upstairs in a room for admission and was told yesterday he would be by now. states he does not want to take any further meds until he has spoken to and would like to be discharged if not going upstairs today. explained to patient importance of fluids due to lab values, patient continue to decline until he speaks with hospitalist.
[2022-01-28 08:38] VITALS: BP 180/86; PULSE 60; RESP 14; O2SAT 99
[2022-01-28] MEDS: methADONE HCl 20 MG/2 ML ORAL.CONC 40 MG PO (08:51)
[2022-01-28] MEDS: 0.9 % Sodium Chloride 1,000 ML 100 ML IVCONT (08:51)
--- NOTE | 2022-01-28 12:28 | PM.DS ---
DS: Providers Provider Date of Service: 01/28/22 Date of admission: 01/27/22 00:33 Primary care physician: None Physician Consults: 01/27/22 06:39 Consult to Care Team Routine Comment: requesting talks from heroin Reason for consultation: detox from heroin 01/27/22 07:26 Addiction Medicine Routine Consulting Provider: Maggie Ramirez Reason for consultation: eval and rec. drug abuse interested in detox DS: Diagnosis Discharge Diagnosis (1) Opioid use disorder: Status: Acute (2) JAE (acute kidney injury): Status: Acute (3) Rhabdomyolysis: Status: Acute DS: Summary Hospital Course Hospital Course: Admission note HPI ?57-year-old male with past medical history of heroin abuse presents to the hospital with complaints of left eye pain, as well as wanting detox.? Patient reports that he? was very high, was found on the street by EMS, after he was consuming heroin.? Patient reports that he must have dozed off and? poked himself in the ? Left eye.? He denies any trauma or injury to the eye otherwise.? He reports no use of contact lenses.? And no contact with for an object.? Is patient reports that he is interested in detoxing from heroin. ? Patient at this time denies any chest pain, no shortness of breath, no abdominal pain, no nausea or vomiting, no diarrhea constipation, no urinary symptoms and no lower extremity edema.? No headache or change in vision, no numbness or weakness or tingling.? On arrival to the ED patient with dynamic least stable no significant abnormal vitals Labs are significant for WBC count of? 18.3, sodium 133, BUN of 23, creatinine of 1.92 with no baseline, CKD of 2360, AST of 51, ALT of 61,?patient started on IV fluids, and will be admitted for further management Hospital course The patient was admitted for treatment of acute kidney injury as a result of from time analysis. Kidney function improved back to normal baseline with usage of IV fluid. He denies any suicidal ideation. Evaluated by care team. Started on methadone for reported withdrawal symptoms. Evaluated by addiction team who started him on methadone 40 mg daily with plan to follow-up with the methadone clinic. Suboxone was discontinued. Noted to have eye injury believed to be corneal abrasion from hitting himself. Started on typical NSAID for pain control with good response. Avoid drug usage and follow-up with methadone clinic. Time Spent with Patient Time attestation: Total time spent providing and/or coordinating discharge services: Discharge coordination time: Greater than 30 minutes Quality: Safe Use of Opioids Does Pt have an Active Cancer Diagnosis on the Problem List?: No Quality: Stroke Does the patient have a stroke diagnosis?: No Physical Exam Vital Signs: Vital Signs: Last Vital Signs Temp 98.1 F 01/27/22 06:06 Pulse 60 01/28/22 08:38 Resp 14 01/28/22 08:38 BP 180/86 H 01/28/22 08:38 Pulse Ox 99 01/28/22 08:38 O2 Del Method 01/28/22 08:38 BMI result Body Mass Index 31.1 Const: Other: Constitutional : Alert, oriented, not in distress Neck : Normal inspection, Supple Cardiovascular : RRR, no JVP, no lower extremity edema Respiratory : fair bilateral air entry, no crackles, wheezes or rhonchi Gastrointestinal: soft, lax, Normal bowel sounds, Non tender Skin : Warm, Dry Neurological : Alert & oriented x3, No focal deficit , CN 2-12 within normal DS: Data Data Completed and Pending Labs on day of discharge: Laboratory Results - last 24 hr 01/28/22 01/28/22 01/28/22 04:06 04:06 04:06 WBC 10.6 RBC 4.81 Hgb 13.9 L Hct 40.6 L MCV 84.4 MCH 28.9 MCHC 34.2 RDW 12.5 Plt Count 215 MPV 9.5 Absolute Nucleated RBC 0.000 Nucleated RBC % (auto) 0.0 Sodium 140 Potassium 3.9 Chloride 110 H Carbon Dioxide 20 L Anion Gap 14 BUN 8 L D Creatinine 0.82 Estim Creat Clear Calc 109.0 Estimated GFR > 60 Random Glucose 101 Calcium 8.8 Total Creatine Kinase 890 H D Preliminary micro results at discharge 01/27/22 01:15 Blood Culture - Preliminary Blood - Venous No growth after 24 hours. 01/27/22 01:15 Blood Culture - Preliminary Blood - Venous No growth after 24 hours. Imaging Chest x-ray: Radiologist's impression: ITS Impressions Chest X-Ray 01/26/22 23:22 IMPRESSION: Unremarkable examination. Discharge Plan Discharge Patient Disposition: Home, Self-Care Discharge Diagnosis: Opioids dose disorder Acute kidney injury Referrals: Physician,None [Primary Care Provider] - 1 Week Discharge Medications: New methadone [Methadose] 10 mg/mL Concentrate 40 mg PO DAILY 1 Days Qty: 4 0RF Rx Instructions: Partial Fill upon patient request. Continued nicotine 21 mg/24 hr Patch 24 Hour 1 patch TRANSDERMAL DAILY fluoxetine [Prozac] 20 mg Capsule 40 mg PO DAILY quetiapine [Seroquel] 50 mg Tablet 50 mg PO DAILY quetiapine 100 mg Tablet 100 mg PO BEDTIME Discontinued buprenorphine-naloxone 8-2 mg Tablet, Sublingual 1 tab SUBLINGUAL BID buprenorphine-naloxone 8-2 mg Tablet, Sublingual 0.5 tab SUBLINGUAL DAILY@1200 Discharge Orders: Discharge Order (Routine); Ordered 01/28/22 Ordered By: Magdalena Gan Diet: Advance to usual diet Activity on Discharge: As tolerated Stand Alone Forms: Patient Portal Discharge page, Substance Abuse Outpt Detox Care Plan Goals: Read below Health Concerns: Read below Plan of Treatment: Read below Assessment: You were admitted to the hospital for treatment of acute kidney injury from muscle breakdown as a result of drug abuse. Treated with IV fluid with good response as your kidneys improved back to normal. Evaluated by addiction team and started on methadone with good response. Follow-up with methadone clinic Avoid drug abuse
== END 2022-01-28 12:50 | disposition home or self-care (01) | DRG 558 ==
LOC: HO.ED 01-27 00:08 → HO.EDOVER 01-27 00:57
PROVIDERS: Physician Assistant; Admitting Provider Internal Medicine; Emergency Provider Student in an Organized Health Care Education/Training Program; Visit Provider Student in an Organized Health Care Education/Training Program
DX: M62.82 Rhabdomyolysis (principal); R45.851 Suicidal ideations; F11.20 Opioid dependence, uncomplicated; N17.9 Acute kidney failure, unspecified; E86.0 Dehydration; S05.02XA Injury of conjunctiva and corneal abrasion without foreign body, left eye, initial encounter; X58.XXXA Exposure to other specified factors, initial encounter; M19.90 Unspecified osteoarthritis, unspecified site; F41.9 Anxiety disorder, unspecified; F32.A Depression, unspecified; F17.210 Nicotine dependence, cigarettes, uncomplicated; Z20.822 Contact with and (suspected) exposure to COVID-19; Z71.6 Tobacco abuse counseling; Z88.5 Allergy status to narcotic agent; Z88.6 Allergy status to analgesic agent; Z88.8 Allergy status to other drugs, medicaments and biological substances; Z79.899 Other long term (current) drug therapy
CPT/HCPCS: 36415; 71045; 80048; 80053; 80143; 80179; 80307; 81003; 82077; 82550; 83605; 83735; 85025; 85027; 87040; 87635; 93005; 99285; J1650

== ENCOUNTER 2022-01-29 22:49 | Inpatient (IN) | payer OTHER, SELFPAY ==
[2022-01-30] VITALS (7 sets, daily range): BP systolic 87–169; BP diastolic 39–79; PULSE 45–59; RESP 14–21; TEMP 36.4–36.6; O2SAT 94–98; BMI 31.1
[2022-01-30 00:47] LABS: MANUAL DIFF FLAG NO
[2022-01-30 00:55] LABS: Basophils Absolute Auto 0.1 X10*3/uL (0.0-0.2); Basophils Percent Auto 0.5 % (0-2); Eosinophils Absolute Auto 0.2 X10*3/uL (0.0-0.4); Eosinophils Percent Auto 1.1 % (0-4); Hematocrit 43.9 % (42.0-52.0); Imm Gran Abs Auto 0.08 X10*3/uL (0.00-0.03); Imm Gran Pct Auto 0.5 % (0.0-0.4); Lymphocytes Absolute Auto 4.3 X10*3/uL (1.2-4.9); Lymphocytes Percent Auto 24.7 % (20-40); Mean Corpuscular HGB Conc 34.2 g/dl (31.0-36.0); Mean Corpuscular Hemoglobin 28.9 pg (27.0-33.0); Mean Corpuscular Volume 84.6 fL (80.0-98.0); Mean Platelet Volume 9.1 fL (9.4-12.4); Monocytes Absolute Auto 1.3 X10*3/uL (0.1-1.2); Monocytes Percent Auto 7.5 % (2-11); Neutrophils Absolute Auto 11.3 x10*3/uL (2.0-8.3); Neutrophils Percent Auto 65.7 % (45-73); Platelet Count 274 X10*3/uL (160-400); Red Blood Count 5.19 X10*6/uL (4.60-5.80); Red Cell Distribution Width 12.5 % (11.0-16.0); White Blood Count 17.2 X10*3/uL (4.8-10.8)
[2022-01-30 01:03] LABS: Anion Gap 19 (12-20); Blood Urea Nitrogen 17 mg/dL (9-16); Calcium 9.8 mg/dL (8.4-10.2); Carbon Dioxide 19 mmol/L (22-29); Chloride 103 mmol/L (96-108); Creatinine Clr Calc Pharmacy 37.7; Estimated Glomerular Filt Rate 29; Ethanol < 10 mg/dL; Glucose Random 191 mg/dL (60-115); Potassium 4.2 mmol/L (3.3-5.1); Sodium 137 mmol/L (135-145)
[2022-01-30] MEDS: 0.9 % Sodium Chloride 1,000 ML 999 ML IV ×2 (02:33→05:58)
--- NOTE | 2022-01-30 02:36 | ED.WEAKNESS ---
HPI - Weakness General Chief complaint: Weakness Stated complaint: weakness,diarrhea d/c from here 01/28 Time Seen by Provider: 01/30/22 02:30 History of Present Illness HPI Narrative: Patient history of IVDA heroin use just discharged on 01/28 after admitted for JAE. Patient creatinine was 0.82 on 01/28 since discharge patient has been feeling weak and tired could not get his methadone today to 20 bags of heroin. No cough no shortness of breath feels no energy in the body, urinating okay Related Data Home Medications Medication Instructions Recorded Confirmed fluoxetine 20 mg capsule (Prozac) 40 mg PO DAILY 01/26/22 01/30/22 nicotine 21 mg/24 hr daily 1 patch transdermal DAILY 01/26/22 01/30/22 transdermal patch quetiapine 50 mg tablet (Seroquel) 25 mg PO DAILY PRN Agitation 01/26/22 01/30/22 quetiapine 100 mg tablet 100 mg PO BEDTIME 01/27/22 01/30/22 Previous Rx's Medication Instructions Recorded methadone 10 mg/mL oral 40 mg (4 mL) PO DAILY 1 day #4 mL 01/28/22 concentrate (Methadose) Allergies Allergy/AdvReac Type Severity Reaction Status Date / Time lisinopril [LISINOPRIL] Allergy Unknown KIDNEY Unverified 01/21/20 15:31 FAILURE codeine [CODEINE] AdvReac Unknown RASH Unverified 01/21/20 15:31 hydrocodone [From VICODIN] AdvReac Unknown RASH Unverified 01/21/20 15:31 ibuprofen [IBUPROFEN] AdvReac Unknown EDEMA Unverified 01/21/20 15:31 Review of Systems Review of Systems: Yes all other systems are reviewed and are negative [facility] Past Medical History Medical History Depression with anxiety Polysubstance abuse Surgical History No pertinent past surgical history Family History Family History Other No family history of coronary artery disease Social History Social History Alcohol intake: former Patient Tobacco Use Status: Current everyday Tobacco user Use of substances other than those prescribed or required for medical reasons: Yes Substance Use Type: Heroin Advance Directives: No Physical Exam Vital Signs: Vital Signs: Last Vital Signs Temp 97.9 F 01/30/22 02:18 Pulse 52 01/30/22 04:29 Resp 18 01/30/22 04:29 BP 99/49 L 01/30/22 04:29 Pulse Ox 97 01/30/22 04:29 O2 Del Method 01/30/22 04:29 BMI result Body Mass Index 31.1 Appearance: Alert. Oriented X3. No acute distress. Sleepy Eyes: PERRLA, No Nystagmus ENT: Pharynx normal. Oral Mucosa moist Neck: Normal inspection. Neck supple. CVS: Normal heart rate and rhythm. Pulses normal. Respiratory: No respiratory distress. Equal air entry bilateral, no wheezing/rales/rhonchi Abdomen: Soft and nontender. Bowel sounds are present, no mass palpable, no CVA tenderness Skin: Skin warm and dry. Normal skin color. Normal skin turgor. Extremities: No lower extremity edema. No calf tenderness Neuro: Oriented X 3. No motor deficit. No sensory deficit.No cerebellar signs , cranial nerves II-XII intact MDM - Weakness MDM Narrative Medical decision making narrative: Patient with JAE substance abuse will admit patient for IV hydration recheck BUN/creatinine Lab Data Attestation: I reviewed the patient's lab results. Result diagrams: 01/30/22 00:42 01/30/22 00:42 Labs: Lab Results 01/30/22 01/30/22 01/30/22 Range/Units 00:42 00:42 03:00 WBC 17.2 H (4.8-10.8) X10*3/uL RBC 5.19 (4.60-5.80) X10*6/uL Hgb 15.0 (14.0-18.0) g/dl Hct 43.9 (42.0-52.0) % MCV 84.6 (80.0-98.0) fL MCH 28.9 (27.0-33.0) pg MCHC 34.2 (31.0-36.0) g/dl RDW 12.5 (11.0-16.0) % Plt Count 274 D (160-400) X10*3/uL MPV 9.1 L (9.4-12.4) fL Immature Gran % (Auto) 0.5 H (0.0-0.4) % Neut % (Auto) 65.7 (45-73) % Lymph % (Auto) 24.7 (20-40) % [place] % (Auto) 7.5 (2-11) % Eos % (Auto) 1.1 (0-4) % Baso % (Auto) 0.5 (0-2) % Lymph # (Auto) 4.3 (1.2-4.9) X10*3/uL [place] # (Auto) 1.3 H (0.1-1.2) X10*3/uL Eos # (Auto) 0.2 (0.0-0.4) X10*3/uL Baso # (Auto) 0.1 (0.0-0.2) X10*3/uL Abs Immat Gran (auto) 0.08 H (0.00-0.03) X10*3/uL Absolute Neuts (auto) 11.3 H (2.0-8.3) x10*3/uL Absolute Nucleated RBC 0.000 (0.0-0.012) X10*3/uL Nucleated RBC % (auto) 0.0 (0.0-0.2) /100WBC Sodium 137 (135-145) mmol/L Potassium 4.2 (3.3-5.1) mmol/L Chloride 103 (96-108) mmol/L Carbon Dioxide 19 L (22-29) mmol/L Anion Gap 19 (12-20) BUN 17 H D (9-16) mg/dL Creatinine 2.37 H (0.5-1.4) mg/dL Estim Creat Clear Calc 37.7 Estimated GFR 29 Random Glucose 191 H D (60-115) mg/dL Calcium 9.8 D (8.4-10.2) mg/dL Total Creatine Kinase 434 H D (38-174) U/L Urine Color Urine Appearance Urine pH (5.0-9.0) Ur Specific [place] (1.005-1.025) Urine Protein (Neg-Trace) mg/dL Urine Glucose (UA) (Negative) mg/dL Urine Ketones (Negative) mg/dL Urine Blood (Negative) Urine Nitrite (Negative) Ur Leukocyte Esterase (Negative) Urine RBC (0-2) /HPF Urine WBC (0-5) /HPF Ur Squamous Epith Cells (0-2) /HPF Urine Bacteria (None Seen) Hyaline Casts (0-2) /LPF Granular Casts Urine Opiates Screen (Not Detect) Urine Fentanyl Screen (Not Detect) Ur Barbiturates Screen (Not Detect) Ur Phencyclidine Scrn (Not Detect) Ur Amphetamines Screen (Not Detect) U Benzodiazepines Scrn (Not Detect) Urine Cocaine Screen (Not Detect) U Marijuana (THC) Screen (Not Detect) Ethyl Alcohol < 10 mg/dL COVID-19 (YANICK) Negative (Negative) COVID-19 Clin Com See Note 01/30/22 01/30/22 Range/Units 03:00 03:00 WBC (4.8-10.8) X10*3/uL RBC (4.60-5.80) X10*6/uL Hgb (14.0-18.0) g/dl Hct (42.0-52.0) % MCV (80.0-98.0) fL MCH (27.0-33.0) pg MCHC (31.0-36.0) g/dl RDW (11.0-16.0) % Plt Count (160-400) X10*3/uL MPV (9.4-12.4) fL Immature Gran % (Auto) (0.0-0.4) % Neut % (Auto) (45-73) % Lymph % (Auto) (20-40) % [place] % (Auto) (2-11) % Eos % (Auto) (0-4) % Baso % (Auto) (0-2) % Lymph # (Auto) (1.2-4.9) X10*3/uL [place] # (Auto) (0.1-1.2) X10*3/uL Eos # (Auto) (0.0-0.4) X10*3/uL Baso # (Auto) (0.0-0.2) X10*3/uL Abs Immat Gran (auto) (0.00-0.03) X10*3/uL Absolute Neuts (auto) (2.0-8.3) x10*3/uL Absolute Nucleated RBC (0.0-0.012) X10*3/uL Nucleated RBC % (auto) (0.0-0.2) /100WBC Sodium (135-145) mmol/L Potassium (3.3-5.1) mmol/L Chloride (96-108) mmol/L Carbon Dioxide (22-29) mmol/L Anion Gap (12-20) BUN (9-16) mg/dL Creatinine (0.5-1.4) mg/dL Estim Creat Clear Calc Estimated GFR Random Glucose (60-115) mg/dL Calcium (8.4-10.2) mg/dL Total Creatine Kinase (38-174) U/L Urine Color DK YELLOW Urine Appearance Clear Urine pH 5.5 (5.0-9.0) Ur Specific [place] >= 1.030 H (1.005-1.025) Urine Protein 30 (1+) H (Neg-Trace) mg/dL Urine Glucose (UA) Negative (Negative) mg/dL Urine Ketones 40 (Negative) mg/dL Urine Blood Negative (Negative) Urine Nitrite Negative (Negative) Ur Leukocyte Esterase Negative (Negative) Urine RBC 3-5 H (0-2) /HPF Urine WBC 0-5 (0-5) /HPF Ur Squamous Epith Cells 0-2 (0-2) /HPF Urine Bacteria Trace (None Seen) Hyaline Casts 6-10 (0-2) /LPF Granular Casts Present Urine Opiates Screen POSITIVE H (Not Detect) Urine Fentanyl Screen POSITIVE H (Not Detect) Ur Barbiturates Screen Not Detected (Not Detect) Ur Phencyclidine Scrn Not Detected (Not Detect) Ur Amphetamines Screen Not Detected (Not Detect) U Benzodiazepines Scrn Not Detected (Not Detect) Urine Cocaine Screen Not Detected (Not Detect) U Marijuana (THC) Screen Not Detected (Not Detect) Ethyl Alcohol mg/dL COVID-19 (YANICK) (Negative) COVID-19 Clin Com ECG Data Attestation: I personally reviewed and interpreted this ECG as follows: Interpretation: Sinus bradycardia heart rate 53 beats per minute normal interval normal axis no acute ST deviation no acute ischemia Discharge Plan Discharge Clinical Impression: Polysubstance abuse, JAE (acute kidney injury) Patient Disposition: Admitted As Inpatient Interventions: LWBS Worksheet Last Done: 01/29/22 23:58
[2022-01-30 03:21] LABS: Amphetamine Screen Urine Not Detected (Not Detect); Barbiturates, Urine Not Detected (Not Detect); Benzodiazepines Screen Urine Not Detected (Not Detect); Cannabinoid Screen Urine Not Detected (Not Detect); Cocaine Screen Urine Not Detected (Not Detect); Fentanyl, urine POSITIVE (Not Detect); Opiate Screen Urine POSITIVE (Not Detect); Phencyclidine Screen Urine Not Detected (Not Detect)
[2022-01-30 03:26] LABS: COVID-19 Test Negative (Negative)
[2022-01-30] MEDS: Sodium Bicarbonate 8.4% 50 MEQ/50 ML SYRINGE IVPUSH (03:32)
[2022-01-30 04:22] LABS: Appearance Urine Clear; Color Urine DK YELLOW; Glucose Urine UA Negative (Negative); Leukocyte Esterase Urine Negative (Negative); Nitrite Urine Negative (Negative); PH 5.5 (5.0-9.0); Specific Gravity - Urine >= 1.030 (1.005-1.025); UMIC TRIGGER UACC YES; Urine Blood Negative (Negative); Urine Ketones 40 mg/dL (Negative); Urine Protein 30 (1+) mg/dL (Neg-Trace)
[2022-01-30 04:34] LABS: Bacteria Urine Trace (None Seen); Granular Casts Urine Present; Squamous Epithelial Cell Urine 0-2 /HPF (0-2); WBC Urine 0-5 /HPF (0-5)
--- NOTE | 2022-01-30 05:49 | PC.NURSE ---
Pt HR noted to be 42, BP 131/58. MD aware, said he does not want any interventions as long as the blood pressure is okay.
--- NOTE | 2022-01-30 05:58 | ECG_ITS ---
Test Reason : WEAKNESS Blood Pressure : / mmHG Vent. Rate : 053 BPM Atrial Rate : 053 BPM P-R Int : 206 ms QRS Dur : 094 ms QT Int : 486 ms P-R-T Axes : 062 055 034 degrees QTc Int : 456 ms Sinus bradycardia Otherwise normal ECG When compared with ECG of 27-JAN-2022 09:33, No significant change was found Referred By: Chano Patircio Electronically Signed By:ROCIO GONZALEZ
--- NOTE | 2022-01-30 06:03 | P.HPHOSP_ITS ---
History of Present Illness Date of Service: 01/30/22 Chief Complaint: Nausea/vomiting 57-year-old male with a past medical history of tobacco dependence, opiate abuse, depression, recent admission to the hospital for JAE presented to the hospital today with a chief complaint of nausea/ vomiting/generalized weakness. Patient mentions that he was recently discharged on January 28; he was initially feeling okay but later on he he was feeling tired and exhausted; he was prescribed med known 40 mg and he tried to make an appointment with opiate maintenance clinic, called few numbers unable to get an appointment for a methadone prescription. Followed by his started feeling nauseous vomiting and diarrhea. Patient mentions that he had diarrhea when he left the hospital as well. Denies any abdominal pain. Denies any fevers and chills. Denies any blood in the vomitus or stool. Mentions that today he used 20 bags of heroin; subsequently came to the hospital for further evaluation. Also mentions he has been smoking cigarettes. Denies any chest pain or palpitations Denies any falls or trauma. Denies any numbness tingling or focal weakness. Review of all other systems is negative except mentioned above ER course: Per ER team patient's exam was benign; on labs noted to have elevated creatinine concerning for JAE. Given IV fluids. Admitted to the hospital for further management PMFSH Medical History Depression with anxiety Polysubstance abuse Family History Other No family history of coronary artery disease Pertinent family history: father has heart disease Surgical History No pertinent past surgical history Social History Household Members: Significant Other Housing: House Do you presently have visiting nurse or other home services: No Alcohol intake: former Patient Tobacco Use Status: Current everyday Tobacco user Tobacco use type: Cigarette e-Cigarette/Vaping Use: Never Used Substance Use Type: Heroin and IV Drugs service: Yes Current occupational status: disabled Meds Allergies Allergy/AdvReac Type Severity Reaction Status Date / Time lisinopril [LISINOPRIL] Allergy Unknown KIDNEY Verified 01/30/22 10:22 FAILURE codeine [CODEINE] AdvReac Unknown RASH Verified 01/30/22 10:22 hydrocodone [From VICODIN] AdvReac Unknown RASH Verified 01/30/22 10:22 ibuprofen [IBUPROFEN] AdvReac Unknown EDEMA Verified 01/30/22 10:22 Active Medications: Current Medications Acetaminophen (Acetaminophen 325 Mg Tablet) 650 mg PO Q6H PRN PRN Reason: Pain, Mild (Pain Scale 1-3) Heparin Sodium (Porcine) (Heparin Sodium,Porcine 5,000 Unit/Ml Vial) 5,000 unit SUBCUT Q8H [facility] Sodium Chloride (Ns) 1,000 mls @ 999 mls/hr IV .Q1H1M ONE Stop: 01/30/22 06:51 Last Admin: 01/30/22 05:58 Dose: 999 mls/hr Melatonin (Melatonin 3 Mg Tablet) 6 mg PO BEDTIME PRN PRN Reason: Insomnia Senna (Sennosides 8.6 Mg Tablet) 17.2 mg PO BEDTIME PRN PRN Reason: Constipation Sodium Chloride (0.9 % Sodium Chloride Flush 3 Ml Syringe) 3 ml IVFLUSH QSHIFT [facility] Home Medications Medication Instructions Recorded Confirmed Last Taken Type fluoxetine 20 mg capsule (Prozac) 40 mg PO DAILY 01/26/22 01/30/22 01/29/22 History nicotine 21 mg/24 hr daily 1 patch transdermal DAILY 01/26/22 01/30/22 Unknown History transdermal patch quetiapine 100 mg tablet 100 mg PO BEDTIME 01/27/22 01/30/22 01/28/22 History quetiapine 50 mg tablet 50 mg PO DAILY 01/30/22 01/30/22 01/28/22 History Physical Exam Vital Signs and Narrative: Vital Signs: Last Vital Signs Temp 97.9 F 01/30/22 02:18 Pulse 52 01/30/22 04:29 Resp 18 01/30/22 04:29 BP 99/49 L 01/30/22 04:29 Pulse Ox 97 01/30/22 04:29 O2 Del Method 01/30/22 04:29 BMI result Body Mass Index 31.1 Gen: Appears be in no acute distress; on telemetry patient's heart rate noted to be in 50s. HEENT: NCAT, Moist mucosa. Pulmonary: Vesicular breath sounds, fair air entry CVS: Normal S1-S2 Abdomen: BS+, Soft, Nontender Extremities: Warm well perfused Neuro: Alert and awake. Results Labs CBC and Chem 7: 02/01/22 06:59 02/01/22 06:59 Labs: Laboratory Results - last 24 hr 01/30/22 01/30/22 01/30/22 00:42 00:42 03:00 MCV 84.6 MCH 28.9 MCHC 34.2 RDW 12.5 Plt Count 274 D MPV 9.1 L Immature Gran % (Auto) 0.5 H Neut % (Auto) 65.7 Lymph % (Auto) 24.7 [place] % (Auto) 7.5 Eos % (Auto) 1.1 Baso % (Auto) 0.5 Lymph # (Auto) 4.3 [place] # (Auto) 1.3 H Eos # (Auto) 0.2 Baso # (Auto) 0.1 Abs Immat Gran (auto) 0.08 H Absolute Neuts (auto) 11.3 H Absolute Nucleated RBC 0.000 Nucleated RBC % (auto) 0.0 Anion Gap 19 Estim Creat Clear Calc 37.7 Estimated GFR 29 Random Glucose 191 H D Calcium 9.8 D Urine Color Urine Appearance Urine pH Ur Specific [place] Urine Protein Urine Glucose (UA) Urine Ketones Urine Blood Urine Nitrite Ur Leukocyte Esterase Urine RBC Urine WBC Ur Squamous Epith Cells Urine Bacteria Hyaline Casts Granular Casts Urine Opiates Screen Urine Fentanyl Screen Ur Barbiturates Screen Ur Phencyclidine Scrn Ur Amphetamines Screen U Benzodiazepines Scrn Urine Cocaine Screen U Marijuana (THC) Screen Ethyl Alcohol < 10 COVID-19 (YANICK) Negative COVID-19 Clin Com See Note 01/30/22 01/30/22 03:00 03:00 MCV MCH MCHC RDW Plt Count MPV Immature Gran % (Auto) Neut % (Auto) Lymph % (Auto) [place] % (Auto) Eos % (Auto) Baso % (Auto) Lymph # (Auto) [place] # (Auto) Eos # (Auto) Baso # (Auto) Abs Immat Gran (auto) Absolute Neuts (auto) Absolute Nucleated RBC Nucleated RBC % (auto) Anion Gap Estim Creat Clear Calc Estimated GFR Random Glucose Calcium Urine Color DK YELLOW Urine Appearance Clear Urine pH 5.5 Ur Specific [place] >= 1.030 H Urine Protein 30 (1+) H Urine Glucose (UA) Negative Urine Ketones 40 Urine Blood Negative Urine Nitrite Negative Ur Leukocyte Esterase Negative Urine RBC 3-5 H Urine WBC 0-5 Ur Squamous Epith Cells 0-2 Urine Bacteria Trace Hyaline Casts 6-10 Granular Casts Present Urine Opiates Screen POSITIVE H Urine Fentanyl Screen POSITIVE H Ur Barbiturates Screen Not Detected Ur Phencyclidine Scrn Not Detected Ur Amphetamines Screen Not Detected U Benzodiazepines Scrn Not Detected Urine Cocaine Screen Not Detected U Marijuana (THC) Screen Not Detected Ethyl Alcohol COVID-19 (YANICK) COVID-19 Clin Com Assessment and Plan (1) JAE (acute kidney injury): Status: Acute (2) Opioid use disorder: Status: Acute Plan 57-year-old male with a past medical history of tobacco dependence, opiate abuse, depression, recent admission to the hospital for JAE presented to the hospital today with a chief complaint of nausea/ vomiting/generalized weakness. Noted to have JAE. Admitted for further management. Generalized weakness/nausea/vomiting / diarrhea: Patient has benign abdominal examination. Question opiate withdrawal related. Supportive care. Opiate dependence: Patient was recently discharged on methadone 40 mg. Monitor on cause protocol. Methadone p.r.n.. Addiction Medicine consult. JAE: Likely prerenal. Patient has recent admission for JAE and at the same time patient also noted to have elevated CPK. Will obtain repeat CPK levels. Continue IV fluids. Bradycardia: Likely in the setting of opiate use. Patient counseled to avoid illicit drug use. Will monitor on telemetry. If develops any pauses will consider Cardiology consult. Patient denies any lightheadedness dizziness or syncope. Tobacco dependence: Counseled on smoking cessation. History of depression: Continue home Fluoxetine. Currently denies any suicidal or homicidal ideations. DVT prophylaxis: Subcu heparin Code status: Full code Quality Stroke Does the patient have a stroke diagnosis?: No VTE Prior VTE?: No VTE Risk Level:: Medical - moderate - high VTE Device Contraindication: Treatment Not Indicated VTE Drug Contraindication: N/A - Med Ordered
[2022-01-30] MEDS: Heparin Sodium,Porcine 5,000 UNIT/ML VIAL 5000 UNIT SUBCUT (06:12)
--- NOTE | 2022-01-30 08:37 | PHA.MEDREC ---
Pharmacy Consult ? Medication Reconciliation Pharmacy has reviewed the medication reconciliation completed by Gracie. [facility] Patient reported to RN he uses methadone however suboxone has been filled on 01/16/22 for 28 days. Maggie Ramirez, MEGAN ordered a low dose of methadone to start patient on methadone, therefore I left suboxone off home med list. Patricia Fam, LuisD
--- NOTE | 2022-01-30 09:35 | MHC.RECOVSUP ---
Recovery Support note: Patient is a 57 year old Hungarian speaking male who presented to [facility] due to weakness and not being able to get his methadone dose. Patient discharged from the hospital on 01/28 with plan to follow up with [facility] for methadone. A referral was sent to the clinic on 01/27 and a last dose letter was sent on 01/29. Patient was instructed to present as a walk in in the morning with an ID and last dose letter. Patient reports he tried calling the clinic on 01/29 and was told they were closed and not to come in. Patient reports he last used 20 bags of heroin on 01/29 at 1700. Patient denied withdrawal symptoms on 01/30 at 800 when this commercial loan underwriter met with him however patient reports he is interested in resuming with the methadone. Discussed case with Maggie Ramirez NP.
--- NOTE | 2022-01-30 09:57 | PM.EVENT ---
Event Note Date of Service: 01/30/22 Event Note: Patient seen and evaluated presenting with acute kidney injury after drug abuse Start gentle hydration Monitor intake and output Follow BMP Addiction team will follow to arrange for outpatient methadone clinic
[2022-01-30] MEDS: 0.9 % Sodium Chloride 1,000 ML 100 ML IVCONT ×2 (10:10→21:27)
[2022-01-30] MEDS: 0.9 % Sodium Chloride Flush 3 ML SYRINGE IVFLUSH (10:11)
[2022-01-30] MEDS: methADONE HCl 20 MG/2 ML ORAL.CONC 30 MG PO (10:11)
[2022-01-30] MEDS: FLUoxetine HCl 20 MG CAPSULE 40 MG PO (10:19)
[2022-01-30] MEDS: Nicotine 21 MG PATCH.TD24 TRANSDERMA (10:19)
--- NOTE | 2022-01-30 10:53 | PC.NURSE ---
dr. khanna made aware of pts low HR (low 40s at times) , resting HR in the mid 40s. reports no new orders at this time, pt is asymptomatic, continue to monitor
--- NOTE | 2022-01-30 13:34 | MHC.CM.PN ---
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 SEE CARE TEAM NOTE/Patient was set up to receive his Methadone from [facility]. Home no services vs Care Team interventions is the goal and CM has initiated and will follow for dc planning. PCP is from [facility] and Patient received Moderna/Covid vax x2.
--- NOTE | 2022-01-30 15:35 | MHC.RECOVSUP ---
Recovery Support note: This writer producer followed up with patient to discuss discharge planning. Patient reports no withdrawal symptoms at this time however states he typically doesn't experience withdrawal until a day or two since his last use. Patient reports he would like to go to a CSS after discharge. Patient information sent to [facility]. [facility] reports patient needs to be established with a methadone clinic before he can be accepted for CSS. Linda at [facility] states it may be possible for patient to do intake with their methadone program so that he can continue dosing with them and admit to their CSS. Plan for Recovery Support RN to follow up on this prior to patient discharge.
--- NOTE | 2022-01-30 16:58 | P.PNADD_ITS ---
Subjective Subjective Date of Service: 01/30/22 Reason For Visit: JAE Interim History: Patient known to this casualty underwriter via admission over the weekend. Patient had self initiated discharge on Saturday, but presented again overnight reporting weakness. Prior to discharge, he was provided with instructions on presenting to [facility] as a walk in with last dose letter for continuation of treatment. He apparently called and left a voicemail early in the morning and by the time someone called back, dosing times were over for the day. Shortly after that he reports he began to experience withdrawal sx. He received methadone 30mg this morning with good effect. When seen by this casualty underwriter, he was denying any withdrawal sx and appeared comfortable. Expressing desire to discharge to [facility] facility from here Review of Systems Constitutional: Reports as per HPI Mental Status Exam Mental Status Exam Patient Appearance: Appropriate Patient Orientation: Person, Place, Time and Situation Mood Description: Calm Affect Description: Calm Patient Cognition Impaired: No Thought Process: Goal Oriented Thought Content: positive for Intact and positive for Goal Oriented Judgement: Fair Diagnostics Vital Signs (24Hr): Vital Signs - 24 hr 01/30/22 00:03 01/30/22 02:18 01/30/22 04:29 Temperature 97.8 F 97.9 F Pulse Rate 59 46 L 52 Respiratory Rate 14 19 18 Blood Pressure 87/39 L 91/46 L 99/49 L Pulse Oximetry 94 94 97 Oxygen Delivery Method Room Air Room Air Room Air 01/30/22 06:44 01/30/22 07:18 01/30/22 11:05 Temperature 97.6 F Pulse Rate 53 50 45 L Respiratory Rate 19 18 20 Blood Pressure 156/77 H 151/79 H 165/73 H Pulse Oximetry 97 98 97 Oxygen Delivery Method Room Air Room Air 01/30/22 15:45 Temperature 97.8 F Pulse Rate 53 Respiratory Rate 21 H Blood Pressure 169/74 H Pulse Oximetry 97 Oxygen Delivery Method Room Air BMI result Body Mass Index 31.1 Labs Results: 01/30/22 00:42 01/30/22 00:42 Labs: Laboratory Results - last 48 hr 01/30/22 01/30/22 01/30/22 00:42 00:42 03:00 WBC 17.2 H RBC 5.19 Hgb 15.0 Hct 43.9 MCV 84.6 MCH 28.9 MCHC 34.2 RDW 12.5 Plt Count 274 D MPV 9.1 L Immature Gran % (Auto) 0.5 H Neut % (Auto) 65.7 Lymph % (Auto) 24.7 [place] % (Auto) 7.5 Eos % (Auto) 1.1 Baso % (Auto) 0.5 Lymph # (Auto) 4.3 [place] # (Auto) 1.3 H Eos # (Auto) 0.2 Baso # (Auto) 0.1 Abs Immat Gran (auto) 0.08 H Absolute Neuts (auto) 11.3 H Absolute Nucleated RBC 0.000 Nucleated RBC % (auto) 0.0 Sodium 137 Potassium 4.2 Chloride 103 Carbon Dioxide 19 L Anion Gap 19 BUN 17 H D Creatinine 2.37 H Estim Creat Clear Calc 37.7 Estimated GFR 29 Random Glucose 191 H D Calcium 9.8 D Total Creatine Kinase 434 H D Urine Color Urine Appearance Urine pH Ur Specific [place] Urine Protein Urine Glucose (UA) Urine Ketones Urine Blood Urine Nitrite Ur Leukocyte Esterase Urine RBC Urine WBC Ur Squamous Epith Cells Urine Bacteria Hyaline Casts Granular Casts Urine Opiates Screen Urine Fentanyl Screen Ur Barbiturates Screen Ur Phencyclidine Scrn Ur Amphetamines Screen U Benzodiazepines Scrn Urine Cocaine Screen U Marijuana (THC) Screen Ethyl Alcohol < 10 COVID-19 (YANICK) Negative COVID-19 Clin Com See Note 01/30/22 01/30/22 03:00 03:00 WBC RBC Hgb Hct MCV MCH MCHC RDW Plt Count MPV Immature Gran % (Auto) Neut % (Auto) Lymph % (Auto) [place] % (Auto) Eos % (Auto) Baso % (Auto) Lymph # (Auto) [place] # (Auto) Eos # (Auto) Baso # (Auto) Abs Immat Gran (auto) Absolute Neuts (auto) Absolute Nucleated RBC Nucleated RBC % (auto) Sodium Potassium Chloride Carbon Dioxide Anion Gap BUN Creatinine Estim Creat Clear Calc Estimated GFR Random Glucose Calcium Total Creatine Kinase Urine Color DK YELLOW Urine Appearance Clear Urine pH 5.5 Ur Specific [place] >= 1.030 H Urine Protein 30 (1+) H Urine Glucose (UA) Negative Urine Ketones 40 Urine Blood Negative Urine Nitrite Negative Ur Leukocyte Esterase Negative Urine RBC 3-5 H Urine WBC 0-5 Ur Squamous Epith Cells 0-2 Urine Bacteria Trace Hyaline Casts 6-10 Granular Casts Present Urine Opiates Screen POSITIVE H Urine Fentanyl Screen POSITIVE H Ur Barbiturates Screen Not Detected Ur Phencyclidine Scrn Not Detected Ur Amphetamines Screen Not Detected U Benzodiazepines Scrn Not Detected Urine Cocaine Screen Not Detected U Marijuana (THC) Screen Not Detected Ethyl Alcohol COVID-19 (YANICK) COVID-19 Clin Com Medications Medications Current Medications Acetaminophen (Acetaminophen 325 Mg Tablet) 650 mg PO Q6H PRN PRN Reason: Pain, Mild (Pain Scale 1-3) Fluoxetine HCl (Fluoxetine Hcl 20 Mg Capsule) 40 mg PO DAILY [facility] Last Admin: 01/30/22 10:19 Dose: 40 mg Heparin Sodium (Porcine) (Heparin Sodium,Porcine 5,000 Unit/Ml Vial) 5,000 unit SUBCUT Q8H [facility] Last Admin: 01/30/22 16:03 Dose: Not Given Sodium Chloride (Ns) 1,000 mls @ 100 mls/hr IVCONT .Q10H [facility] Last Admin: 01/30/22 10:10 Dose: 100 mls/hr Melatonin (Melatonin 3 Mg Tablet) 6 mg PO BEDTIME PRN PRN Reason: Insomnia Methadone HCl (Methadone Hcl 20 Mg/2 Ml Oral.Conc) 30 mg PO DAILY [facility] Last Admin: 01/30/22 10:11 Dose: 30 mg Nicotine (Nicotine 21 Mg Patch.Td24) 21 mg TRANSDERMA DAILY [facility] Last Admin: 01/30/22 10:19 Dose: 21 mg Quetiapine Fumarate (Quetiapine Fumarate 50 Mg Tablet) 50 mg PO DAILY [facility] Last Admin: 01/30/22 10:15 Dose: Not Given Quetiapine Fumarate (Quetiapine Fumarate 100 Mg Tablet) 100 mg PO BEDTIME [facility] Senna (Sennosides 8.6 Mg Tablet) 17.2 mg PO BEDTIME PRN PRN Reason: Constipation Sodium Chloride (0.9 % Sodium Chloride Flush 3 Ml Syringe) 3 ml IVFLUSH QSHIFT [facility] Last Admin: 01/30/22 16:28 Dose: Not Given Allergies Allergies Allergy/AdvReac Type Severity Reaction Status Date / Time lisinopril [LISINOPRIL] Allergy Unknown KIDNEY Verified 01/30/22 10:22 FAILURE codeine [CODEINE] AdvReac Unknown RASH Verified 01/30/22 10:22 hydrocodone [From VICODIN] AdvReac Unknown RASH Verified 01/30/22 10:22 ibuprofen [IBUPROFEN] AdvReac Unknown EDEMA Verified 01/30/22 10:22 Assessment & Plan Assessment & Plan (1) Opioid use disorder: Status: Acute Code(s): F11.90 - Opioid use, unspecified, uncomplicated Assessment and Plan: * methadone 40mg tomorrow * RSC to follow up with additional [facility] resources I spent ___30___ minutes with the patient and/or on the patient floor today, greater than?50% of which was spent counseling/coordinating care.
[2022-01-30] MEDS: QUEtiapine Fumarate 100 MG TABLET PO (21:27)
[2022-01-31] VITALS (9 sets, daily range): BP systolic 164–210; BP diastolic 75–104; PULSE 60–72; RESP 12–21; TEMP 36.2–37.3; O2SAT 96–100
[2022-01-31] MEDS: 0.9 % Sodium Chloride 1,000 ML 100 ML IVCONT (04:26)
[2022-01-31] MEDS: amLODIPine Besylate 5 MG TABLET PO ×2 (04:42→20:11)
[2022-01-31 07:45] LABS: MANUAL DIFF FLAG NO
[2022-01-31 07:49] LABS: Basophils Absolute Auto 0.1 X10*3/uL (0.0-0.2); Basophils Percent Auto 0.8 % (0-2); Eosinophils Absolute Auto 0.2 X10*3/uL (0.0-0.4); Eosinophils Percent Auto 1.7 % (0-4); Hematocrit 42.6 % (42.0-52.0); Hemoglobin 14.7 g/dl (14.0-18.0); Imm Gran Abs Auto 0.03 X10*3/uL (0.00-0.03); Imm Gran Pct Auto 0.3 % (0.0-0.4); Lymphocytes Absolute Auto 2.7 X10*3/uL (1.2-4.9); Lymphocytes Percent Auto 30.2 % (20-40); Mean Corpuscular HGB Conc 34.5 g/dl (31.0-36.0); Mean Corpuscular Hemoglobin 29.5 pg (27.0-33.0); Mean Corpuscular Volume 85.4 fL (80.0-98.0); Mean Platelet Volume 9.5 fL (9.4-12.4); Monocytes Absolute Auto 0.8 X10*3/uL (0.1-1.2); Monocytes Percent Auto 8.4 % (2-11); Neutrophils Absolute Auto 5.2 x10*3/uL (2.0-8.3); Neutrophils Percent Auto 58.6 % (45-73); Platelet Count 248 X10*3/uL (160-400); Red Blood Count 4.99 X10*6/uL (4.60-5.80); Red Cell Distribution Width 12.6 % (11.0-16.0); White Blood Count 8.9 X10*3/uL (4.8-10.8)
[2022-01-31 08:14] LABS: Anion Gap 17 (12-20); Blood Urea Nitrogen 8 mg/dL (9-16); Calcium 9.2 mg/dL (8.4-10.2); Carbon Dioxide 19 mmol/L (22-29); Chloride 109 mmol/L (96-108); Estimated Glomerular Filt Rate > 60; Glucose Random 107 mg/dL (60-115); Potassium 4.5 mmol/L (3.3-5.1); Sodium 140 mmol/L (135-145)
[2022-01-31] MEDS: Nicotine 21 MG PATCH.TD24 TRANSDERMA (09:48)
[2022-01-31] MEDS: FLUoxetine HCl 20 MG CAPSULE 40 MG PO (09:48)
[2022-01-31] MEDS: methADONE HCl 20 MG/2 ML ORAL.CONC 40 MG PO (09:49)
--- NOTE | 2022-01-31 10:15 | PC.NURSE ---
Dr. Foster aware of BP. At bedside with patient
--- NOTE | 2022-01-31 14:27 | PC.NURSE ---
Patient refused heparin. Says he does not need it because he is walking around
[2022-01-31] MEDS: 0.9 % Sodium Chloride Flush 3 ML SYRINGE IVFLUSH ×2 (14:29→20:14)
--- NOTE | 2022-01-31 14:58 | P.PNIM_ITS ---
Subjective Subjective Date of Service: 01/31/22 Interval History: cc: weakness, diarrhea interval history:still weak and diarrhea Cardiovascular Cardiovascular: Reports no additional cardiovascular complaints Respiratory Respiratory: Reports no additional respiratory complaints Physical Exam Vital Signs: Vital Signs: Last Vital Signs Temp 97.1 F 01/31/22 12:00 Pulse 60 01/31/22 12:00 Resp 20 01/31/22 12:00 BP 179/88 H 01/31/22 12:00 Pulse Ox 97 01/31/22 12:00 O2 Del Method 01/31/22 12:00 BMI result Body Mass Index 31.1 General: AO X 3, no acute distress Resp: CTA bilateral, no accessory muscles used CVS: S1,S2,RRR GI: soft, non tender, non distended Neuro: motor grossly intact, alert Psych: appropriate affect, appropriate insight Objective Data Active Medications Acetaminophen (Acetaminophen 325 Mg Tablet) 650 mg PO Q6H PRN PRN Reason: Pain, Mild (Pain Scale 1-3) Fluoxetine HCl (Fluoxetine Hcl 20 Mg Capsule) 40 mg PO DAILY [facility] Last Admin: 01/31/22 09:48 Dose: 40 mg Documented By: CM Heparin Sodium (Porcine) (Heparin Sodium,Porcine 5,000 Unit/Ml Vial) 5,000 unit SUBCUT Q8H [facility] Last Admin: 01/31/22 14:27 Dose: Not Given Documented By: YUE Non-Admin Reason: Patient Refused Melatonin (Melatonin 3 Mg Tablet) 6 mg PO BEDTIME PRN PRN Reason: Insomnia Methadone HCl (Methadone Hcl 20 Mg/2 Ml Oral.Conc) 50 mg PO DAILY [facility] Methadone HCl (Methadone Hcl 20 Mg/2 Ml Oral.Conc) 10 mg PO ONCE ONE Stop: 01/31/22 16:01 Nicotine (Nicotine 21 Mg Patch.Td24) 21 mg TRANSDERMA DAILY [facility] Last Admin: 01/31/22 09:48 Dose: 21 mg Documented By: CM Quetiapine Fumarate (Quetiapine Fumarate 50 Mg Tablet) 50 mg PO DAILY [facility] Last Admin: 01/31/22 09:47 Dose: Not Given Documented By: CM Non-Admin Reason: Patient Refused Quetiapine Fumarate (Quetiapine Fumarate 100 Mg Tablet) 100 mg PO BEDTIME [facility] Last Admin: 01/30/22 21:27 Dose: 100 mg Documented By: HO.SANNAFA Senna (Sennosides 8.6 Mg Tablet) 17.2 mg PO BEDTIME PRN PRN Reason: Constipation Sodium Chloride (0.9 % Sodium Chloride Flush 3 Ml Syringe) 3 ml IVFLUSH QSHIFT [facility] Last Admin: 01/31/22 14:29 Dose: 3 ml Documented By: YUE Labs CBC & Chem 7: 01/31/22 07:24 01/31/22 07:24 Labs: Laboratory Results - last 24 hr 01/31/22 01/31/22 07:24 07:24 MCV 85.4 MCH 29.5 MCHC 34.5 RDW 12.6 Plt Count 248 MPV 9.5 Immature Gran % (Auto) 0.3 Neut % (Auto) 58.6 Lymph % (Auto) 30.2 [place] % (Auto) 8.4 Eos % (Auto) 1.7 Baso % (Auto) 0.8 Lymph # (Auto) 2.7 [place] # (Auto) 0.8 Eos # (Auto) 0.2 Baso # (Auto) 0.1 Abs Immat Gran (auto) 0.03 Absolute Neuts (auto) 5.2 Absolute Nucleated RBC 0.000 Nucleated RBC % (auto) 0.0 Anion Gap 17 Estim Creat Clear Calc 104.0 Estimated GFR > 60 Random Glucose 107 D Calcium 9.2 D Assessment and Plan (1) Opioid use disorder: Status: Acute Plan 57M with pmh of opiate dependence, depression, presented with weakness and diarrhea complicated by priya Acute kidney injury Likely hypovolemic due to diarrhea resolved with hydration diarrhea check stool pcr ?opiate withdrawal opiate dependence with withdrawal methadone elevated bp ?due to opiate withdrawal methadone monitor mood disorder continue prozac, seroquel dvt prophylaxis - lovenox full code reason for continued hospitalization:bp control, ongoing diarrhea Quality Stroke Does the patient have a stroke diagnosis?: No VTE Prior VTE?: No VTE Risk Level:: Medical - moderate - high VTE Device Contraindication: Treatment Not Indicated VTE Drug Contraindication: N/A - Med Ordered
[2022-01-31] MEDS: methADONE HCl 20 MG/2 ML ORAL.CONC 10 MG PO (16:15)
--- NOTE | 2022-01-31 16:51 | P.PNADD_ITS ---
Subjective Subjective Date of Service: 01/31/22 Reason For Visit: JAE Interim History: Reporting difficulty sleeping and continues with loose stools, teary eyes and rhionorrhea. Would like increase in methadone Has still been calling [facility] facilities for admission following discharge. Referral sent to [facility] as well for possible admission to their ATS and OTP program. Review of Systems Constitutional: Reports as per HPI and Reports no additional constitutional complaints Mental Status Exam Mental Status Exam Patient Appearance: Well Grooomed and Appropriate Patient Orientation: Person, Place, Time and Situation Level of Consciousness: Awake and Appropriate Patient Behavior: Appropriate and Cooperative Mood Description: Calm Affect Description: Calm Patient Cognition Impaired: No Thought Process: Goal Oriented Thought Content: positive for Goal Oriented Judgement: Good Diagnostics Vital Signs (24Hr): Vital Signs - 24 hr 01/31/22 00:00 01/31/22 04:00 01/31/22 08:00 Temperature 98.7 F 99.1 F 98.4 F Pulse Rate 62 69 72 Respiratory Rate 18 17 21 H Blood Pressure 194/75 H 210/104 H 196/81 H Pulse Oximetry 97 96 98 Oxygen Delivery Method Room Air Room Air Room Air 01/31/22 12:00 01/31/22 15:23 Temperature 97.1 F 97.3 F Pulse Rate 60 65 Respiratory Rate 20 12 Blood Pressure 179/88 H 198/81 H Pulse Oximetry 97 98 Oxygen Delivery Method Room Air Room Air BMI result Body Mass Index 31.1 Labs Results: 01/31/22 07:24 01/31/22 07:24 Labs: Laboratory Results - last 48 hr 01/30/22 01/30/22 01/30/22 00:42 00:42 03:00 WBC 17.2 H RBC 5.19 Hgb 15.0 Hct 43.9 MCV 84.6 MCH 28.9 MCHC 34.2 RDW 12.5 Plt Count 274 D MPV 9.1 L Immature Gran % (Auto) 0.5 H Neut % (Auto) 65.7 Lymph % (Auto) 24.7 [place] % (Auto) 7.5 Eos % (Auto) 1.1 Baso % (Auto) 0.5 Lymph # (Auto) 4.3 [place] # (Auto) 1.3 H Eos # (Auto) 0.2 Baso # (Auto) 0.1 Abs Immat Gran (auto) 0.08 H Absolute Neuts (auto) 11.3 H Absolute Nucleated RBC 0.000 Nucleated RBC % (auto) 0.0 Sodium 137 Potassium 4.2 Chloride 103 Carbon Dioxide 19 L Anion Gap 19 BUN 17 H D Creatinine 2.37 H Estim Creat Clear Calc 37.7 Estimated GFR 29 Random Glucose 191 H D Calcium 9.8 D Total Creatine Kinase 434 H D Urine Color Urine Appearance Urine pH Ur Specific [place] Urine Protein Urine Glucose (UA) Urine Ketones Urine Blood Urine Nitrite Ur Leukocyte Esterase Urine RBC Urine WBC Ur Squamous Epith Cells Urine Bacteria Hyaline Casts Granular Casts Urine Opiates Screen Urine Fentanyl Screen Ur Barbiturates Screen Ur Phencyclidine Scrn Ur Amphetamines Screen U Benzodiazepines Scrn Urine Cocaine Screen U Marijuana (THC) Screen Ethyl Alcohol < 10 COVID-19 ([facility]ANICK) Negative COVID-19 Clin Com See Note 01/30/22 01/30/22 01/31/22 03:00 03:00 07:24 WBC 8.9 RBC 4.99 Hgb 14.7 Hct 42.6 MCV 85.4 MCH 29.5 MCHC 34.5 RDW 12.6 Plt Count 248 MPV 9.5 Immature Gran % (Auto) 0.3 Neut % (Auto) 58.6 Lymph % (Auto) 30.2 [place] % (Auto) 8.4 Eos % (Auto) 1.7 Baso % (Auto) 0.8 Lymph # (Auto) 2.7 [place] # (Auto) 0.8 Eos # (Auto) 0.2 Baso # (Auto) 0.1 Abs Immat Gran (auto) 0.03 Absolute Neuts (auto) 5.2 Absolute Nucleated RBC 0.000 Nucleated RBC % (auto) 0.0 Sodium Potassium Chloride Carbon Dioxide Anion Gap BUN Creatinine Estim Creat Clear Calc Estimated GFR Random Glucose Calcium Total Creatine Kinase Urine Color DK YELLOW Urine Appearance Clear Urine pH 5.5 Ur Specific [place] >= 1.030 H Urine Protein 30 (1+) H Urine Glucose (UA) Negative Urine Ketones 40 Urine Blood Negative Urine Nitrite Negative Ur Leukocyte Esterase Negative Urine RBC 3-5 H Urine WBC 0-5 Ur Squamous Epith Cells 0-2 Urine Bacteria Trace Hyaline Casts 6-10 Granular Casts Present Urine Opiates Screen POSITIVE H Urine Fentanyl Screen POSITIVE H Ur Barbiturates Screen Not Detected Ur Phencyclidine Scrn Not Detected Ur Amphetamines Screen Not Detected U Benzodiazepines Scrn Not Detected Urine Cocaine Screen Not Detected U Marijuana (THC) Screen Not Detected Ethyl Alcohol COVID-19 (YANICK) COVID-19 [employer] Com 01/31/22 07:24 WBC RBC Hgb Hct MCV MCH MCHC RDW Plt Count MPV Immature Gran % (Auto) Neut % (Auto) Lymph % (Auto) [place] % (Auto) Eos % (Auto) Baso % (Auto) Lymph # (Auto) [place] # (Auto) Eos # (Auto) Baso # (Auto) Abs Immat Gran (auto) Absolute Neuts (auto) Absolute Nucleated RBC Nucleated RBC % (auto) Sodium 140 Potassium 4.5 Chloride 109 H Carbon Dioxide 19 L Anion Gap 17 BUN 8 L D Creatinine 0.86 Estim Creat Clear Calc 104.0 Estimated GFR > 60 Random Glucose 107 D Calcium 9.2 D Total Creatine Kinase Urine Color Urine Appearance Urine pH Ur Specific [place] Urine Protein Urine Glucose (UA) Urine Ketones Urine Blood Urine Nitrite Ur Leukocyte Esterase Urine RBC Urine WBC Ur Squamous Epith Cells Urine Bacteria Hyaline Casts Granular Casts Urine Opiates Screen Urine Fentanyl Screen Ur Barbiturates Screen Ur Phencyclidine Scrn Ur Amphetamines Screen U Benzodiazepines Scrn Urine Cocaine Screen U Marijuana (THC) Screen Ethyl Alcohol COVID-19 (YANICK) COVID-19 Clin Com Medications Medications Current Medications Acetaminophen (Acetaminophen 325 Mg Tablet) 650 mg PO Q6H PRN PRN Reason: Pain, Mild (Pain Scale 1-3) Enoxaparin Sodium (Enoxaparin Sodium 40 Mg/0.4 Ml Syringe) 40 mg SUBCUT Q24H [facility] Fluoxetine HCl (Fluoxetine Hcl 20 Mg Capsule) 40 mg PO DAILY [facility] Last Admin: 01/31/22 09:48 Dose: 40 mg Melatonin (Melatonin 3 Mg Tablet) 6 mg PO BEDTIME PRN PRN Reason: Insomnia Methadone HCl (Methadone Hcl 20 Mg/2 Ml Oral.Conc) 50 mg PO DAILY [facility] Nicotine (Nicotine 21 Mg Patch.Td24) 21 mg TRANSDERMA DAILY [facility] Last Admin: 01/31/22 09:48 Dose: 21 mg Quetiapine Fumarate (Quetiapine Fumarate 50 Mg Tablet) 50 mg PO DAILY [facility] Last Admin: 01/31/22 09:47 Dose: Not Given Quetiapine Fumarate (Quetiapine Fumarate 100 Mg Tablet) 100 mg PO BEDTIME [facility] Last Admin: 01/30/22 21:27 Dose: 100 mg Senna (Sennosides 8.6 Mg Tablet) 17.2 mg PO BEDTIME PRN PRN Reason: Constipation Sodium Chloride (0.9 % Sodium Chloride Flush 3 Ml Syringe) 3 ml IVFLUSH QSHIFT [facility] Last Admin: 01/31/22 14:29 Dose: 3 ml Allergies Allergies Allergy/AdvReac Type Severity Reaction Status Date / Time lisinopril [LISINOPRIL] Allergy Unknown KIDNEY Verified 01/30/22 10:22 FAILURE codeine [CODEINE] AdvReac Unknown RASH Verified 01/30/22 10:22 hydrocodone [From VICODIN] AdvReac Unknown RASH Verified 01/30/22 10:22 ibuprofen [IBUPROFEN] AdvReac Unknown EDEMA Verified 01/30/22 10:22 Assessment & Plan Assessment & Plan (1) Opioid use disorder: Status: Acute Code(s): F11.90 - Opioid use, unspecified, uncomplicated Assessment and Plan: * additional 10mg methadone x1 today * methadone 50mg QD tomorrow * followup with [facility] facilities in AM I spent ___25___ minutes with the patient and/or on the patient floor today, greater than?50% of which was spent counseling/coordinating care.
[2022-01-31] MEDS: QUEtiapine Fumarate 100 MG TABLET PO (20:11)
[2022-02-01] VITALS: BP 190/94; PULSE 67; RESP 18; TEMP 36.6; O2SAT 97
[2022-02-01 01:15] VITALS: BMI 30.7
[2022-02-01 03:10] VITALS: BP 192/90; PULSE 64; RESP 18; TEMP 36.9; O2SAT 97
[2022-02-01 04:15] VITALS: BP 183/80; PULSE 72; RESP 18
[2022-02-01] MEDS: amLODIPine Besylate 5 MG TABLET PO (04:41)
--- NOTE | 2022-02-01 04:42 | PC.NURSE ---
ASSUMED CARE 3AM...PER REPORT BP PREVIOUSLY ELEVATED....CURRENT BP 183/80..ALERT..ORIENTED X3..ASYMPTOMATIC..DR LAWRENCE UPDATED..PER 9AM DOSE OF NORVASC 5MG PO GIVEN NOW
[2022-02-01] MEDS: Acetaminophen 325 MG TABLET 650 MG PO (06:45)
[2022-02-01 07:14] VITALS: BP 173/97; PULSE 77; RESP 18; TEMP 37.1; O2SAT 97
[2022-02-01 07:17] LABS: Hematocrit 47.4 % (42.0-52.0); Hemoglobin 16.3 g/dl (14.0-18.0); Mean Corpuscular HGB Conc 34.4 g/dl (31.0-36.0); Mean Corpuscular Hemoglobin 29.4 pg (27.0-33.0); Mean Corpuscular Volume 85.4 fL (80.0-98.0); Mean Platelet Volume 9.2 fL (9.4-12.4); Platelet Count 319 X10*3/uL (160-400); Red Blood Count 5.55 X10*6/uL (4.60-5.80); Red Cell Distribution Width 12.5 % (11.0-16.0); White Blood Count 11.1 X10*3/uL (4.8-10.8)
[2022-02-01 07:28] LABS: Anion Gap 17 (12-20); Blood Urea Nitrogen 8 mg/dL (9-16); Calcium 10.4 mg/dL (8.4-10.2); Carbon Dioxide 23 mmol/L (22-29); Chloride 104 mmol/L (96-108); Creatinine Clr Calc Pharmacy 90.5; Estimated Glomerular Filt Rate > 60; Glucose Fasting 143 mg/dL (60-99); Potassium 4.5 mmol/L (3.3-5.1); Sodium 139 mmol/L (135-145)
[2022-02-01] MEDS: 0.9 % Sodium Chloride Flush 3 ML SYRINGE IVFLUSH (09:20)
[2022-02-01] MEDS: methADONE HCl 20 MG/2 ML ORAL.CONC 50 MG PO (09:21)
[2022-02-01] MEDS: Nicotine 21 MG PATCH.TD24 TRANSDERMA (09:21)
[2022-02-01] MEDS: FLUoxetine HCl 20 MG CAPSULE 40 MG PO (09:21)
--- NOTE | 2022-02-01 10:33 | PM.DS ---
DS: Providers Provider Date of Service: 02/01/22 Date of admission: 01/30/22 05:59 Primary care physician: None Physician Consults: 01/30/22 05:58 Addiction Medicine Routine Consulting Provider: Maggie Ramirez Reason for consultation: pt on methaodne DS: Diagnosis Discharge Diagnosis (1) Opioid use disorder: Status: Acute DS: Summary Hospital Course Hospital Course: from initial hpi: Chief Complaint: Nausea/vomiting ?57-year-old male with a past medical history of tobacco dependence, opiate abuse, depression, recent admission to the hospital for JAE presented to the hospital today with a chief complaint of nausea/ vomiting/generalized weakness.? Patient mentions that he was recently discharged on? January 28; he was initially feeling okay but later on he he was feeling tired and exhausted; he was prescribed med known 40 mg and he tried to make an appointment with opiate maintenance clinic,? called few numbers unable to get? an appointment for a methadone prescription.? Followed by his started feeling nauseous vomiting and diarrhea.? Patient mentions that he had diarrhea when he left the hospital as well.? Denies any abdominal pain.? Denies any fevers and chills.? Denies any blood in the vomitus or stool.? Mentions that today he used 20 bags of heroin; subsequently came to the hospital for further evaluation.? Also mentions he has been smoking cigarettes.? Denies any chest pain or palpitations Denies any falls or trauma.? Denies any numbness tingling or focal weakness.? Review of all other systems is negative except mentioned above ER course: Per ER team patient's exam was benign; on labs noted to have elevated creatinine concerning for JAE.? Given IV fluids.? Admitted to the hospital for further management hospital course: Patient was admitted for acute kidney injury likely due to hypovolemia from diarrhea possibly due to opiate dependence with withdrawal. Diarrhea improved with methadone. JAE resolved with IV hydration. Patient noted to have elevated blood pressures, partially due to opiate withdrawal but likely has underlying hypertension and will be started on amlodipine 5 mg daily. For his mood disorder he was continued on Prozac and Seroquel. Patient will follow up with methadone clinic as outpatient. Time Spent with Patient Time attestation: Total time spent providing and/or coordinating discharge services: Discharge coordination time: Greater than 30 minutes Quality: Safe Use of Opioids Does Pt have an Active Cancer Diagnosis on the Problem List?: No Quality: Stroke Does the patient have a stroke diagnosis?: No Physical Exam Vital Signs: Vital Signs: Last Vital Signs Temp 98.8 F 02/01/22 07:14 Pulse 77 02/01/22 07:14 Resp 18 02/01/22 07:14 BP 173/97 H 02/01/22 07:14 Pulse Ox 97 02/01/22 07:14 O2 Del Method 02/01/22 07:14 BMI result Body Mass Index 30.7 General: AO X 3, no acute distress Resp: CTA bilateral, no accessory muscles used CVS: S1,S2,RRR GI: soft, non tender, non distended Neuro: motor grossly intact, alert Psych: appropriate affect, appropriate insight DS: Data Data Completed and Pending Labs on day of discharge: Laboratory Results - last 24 hr 02/01/22 02/01/22 06:59 06:59 WBC 11.1 H RBC 5.55 Hgb 16.3 Hct 47.4 MCV 85.4 MCH 29.4 MCHC 34.4 RDW 12.5 Plt Count 319 D MPV 9.2 L Absolute Nucleated RBC 0.000 Nucleated RBC % (auto) 0.0 Sodium 139 Potassium 4.5 Chloride 104 Carbon Dioxide 23 Anion Gap 17 BUN 8 L Creatinine 0.98 Estim Creat Clear Calc 90.5 Estimated GFR > 60 Fasting Glucose 143 H Calcium 10.4 H D Discharge Plan Discharge Anticipated Discharge Date/Time: 02/01/22 10:30 Patient Disposition: Home, Self-Care Discharge Diagnosis: jae Referrals: Physician,None [Primary Care Provider] - 1 Week Discharge Medications: New amlodipine 5 mg Tablet 5 mg PO DAILY Qty: 30 0RF Protocol: Hold for SBP< HOLD for SBP < : 90 Continued nicotine 21 mg/24 hr Patch 24 Hour 1 patch TRANSDERMAL DAILY fluoxetine [Prozac] 20 mg Capsule 40 mg PO DAILY quetiapine 100 mg Tablet 100 mg PO BEDTIME methadone [Methadose] 10 mg/mL Concentrate 40 mg PO DAILY 1 Days Qty: 4 0RF Rx Instructions: Partial Fill upon patient request. quetiapine 50 mg Tablet 50 mg PO DAILY Discharge Orders: Discharge Order (Routine); Ordered 02/01/22 Ordered By: Luis Bansal Diet: Advance to usual diet Activity on Discharge: As tolerated Stand Alone Forms: Patient Portal Discharge page Care Plan Goals: avoid jae Health Concerns: opiate dependence Plan of Treatment: avoid iv drugs, follow up with methadone clinic Assessment: see above
--- NOTE | 2022-02-01 11:42 | MHC.CM.PN ---
Patient has been medically cleared for dc to home today self care. Last IMM addressed on 01/30/2022. Per CM Miner Operator/Yulisa, she will be arranging Lyft transportation for Patient.
[2022-02-01 12:00] VITALS: BP 183/88; PULSE 82; RESP 14; TEMP 36.3; O2SAT 97
--- NOTE | 2022-02-01 12:30 | P.PNADD_ITS ---
Subjective Subjective Date of Service: 02/01/22 Reason For Visit: JAE Interim History: Patient tolerated increase in dose. 50mg today. Reporting he is feeling more energized, but still not 100% . Has been medically cleared for discharge. Plan was for discharge to [facility], however it was noted that patient has [place] benefits and bedsearch with [facility] would have to be exhausted before [facility] could accept. [facility] did in fact have [facility] beds available, although patient declined admission to their facility. He was advised by [facility] that he could seek treatment anywhere he's like, but would be responsible for the cost. Ultimately patient decided to be discharged home, and complete phone intake with [facility] today at 1pm. Review of Systems Medical Review of Systems: unchanged Mental Status Exam Mental Status Exam Patient Appearance: Well Grooomed and Appropriate Patient Orientation: Person, Place, Time and Situation Level of Consciousness: Awake and Appropriate Patient Behavior: Appropriate and Cooperative Mood Description: Calm Affect Description: Calm and Appropriate Thought Process: Goal Oriented Thought Content: positive for Goal Oriented Judgement: Fair Diagnostics Vital Signs (24Hr): Vital Signs - 24 hr 01/31/22 15:23 01/31/22 17:19 01/31/22 17:25 Temperature 97.3 F Pulse Rate 65 Respiratory Rate 12 18 Blood Pressure 198/81 H 174/76 H 174/81 H Pulse Oximetry 98 Oxygen Delivery Method Room Air 01/31/22 19:28 01/31/22 21:32 02/01/22 00:00 Temperature 98.0 F 97.9 F Pulse Rate 60 67 Respiratory Rate 18 18 Blood Pressure 180/100 H 164/88 H 190/94 H Pulse Oximetry 100 97 Oxygen Delivery Method Room Air Room Air 02/01/22 03:10 02/01/22 04:15 02/01/22 07:14 Temperature 98.4 F 98.8 F Pulse Rate 64 72 77 Respiratory Rate 18 18 18 Blood Pressure 192/90 H 183/80 H 173/97 H Pulse Oximetry 97 97 Oxygen Delivery Method Room Air Room Air 02/01/22 12:00 Temperature 97.4 F Pulse Rate 82 Respiratory Rate 14 Blood Pressure 183/88 H Pulse Oximetry 97 Oxygen Delivery Method Room Air BMI result Body Mass Index 30.7 Labs Results: 02/01/22 06:59 02/01/22 06:59 Labs: Laboratory Results - last 48 hr 01/31/22 01/31/22 02/01/22 07:24 07:24 06:59 WBC 8.9 11.1 H RBC 4.99 5.55 Hgb 14.7 16.3 Hct 42.6 47.4 MCV 85.4 85.4 MCH 29.5 29.4 MCHC 34.5 34.4 RDW 12.6 12.5 Plt Count 248 319 D MPV 9.5 9.2 L Immature Gran % (Auto) 0.3 Neut % (Auto) 58.6 Lymph % (Auto) 30.2 [place] % (Auto) 8.4 Eos % (Auto) 1.7 Baso % (Auto) 0.8 Lymph # (Auto) 2.7 [place] # (Auto) 0.8 Eos # (Auto) 0.2 Baso # (Auto) 0.1 Abs Immat Gran (auto) 0.03 Absolute Neuts (auto) 5.2 Absolute Nucleated RBC 0.000 0.000 Nucleated RBC % (auto) 0.0 0.0 Sodium 140 Potassium 4.5 Chloride 109 H Carbon Dioxide 19 L Anion Gap 17 BUN 8 L D Creatinine 0.86 Estim Creat Clear Calc 104.0 Estimated GFR > 60 Random Glucose 107 D Fasting Glucose Calcium 9.2 D 02/01/22 06:59 WBC RBC Hgb Hct MCV MCH MCHC RDW Plt Count MPV Immature Gran % (Auto) Neut % (Auto) Lymph % (Auto) [place] % (Auto) Eos % (Auto) Baso % (Auto) Lymph # (Auto) [place] # (Auto) Eos # (Auto) Baso # (Auto) Abs Immat Gran (auto) Absolute Neuts (auto) Absolute Nucleated RBC Nucleated RBC % (auto) Sodium 139 Potassium 4.5 Chloride 104 Carbon Dioxide 23 Anion Gap 17 BUN 8 L Creatinine 0.98 Estim Creat Clear Calc 90.5 Estimated GFR > 60 Random Glucose Fasting Glucose 143 H Calcium 10.4 H D Medications Medications Current Medications Acetaminophen (Acetaminophen 325 Mg Tablet) 650 mg PO Q6H PRN PRN Reason: Pain, Mild (Pain Scale 1-3) Last Admin: 02/01/22 06:45 Dose: 650 mg Amlodipine Besylate (Amlodipine Besylate 5 Mg Tablet) 5 mg PO DAILY [facility]AT[facility]INA; Protocol Last Admin: 02/01/22 04:41 Dose: 5 mg Enoxaparin Sodium (Enoxaparin Sodium 40 Mg/0.4 Ml Syringe) 40 mg SUBCUT Q24H [facility] Last Admin: 02/01/22 09:25 Dose: Not Given Fluoxetine HCl (Fluoxetine Hcl 20 Mg Capsule) 40 mg PO DAILY [facility] Last Admin: 02/01/22 09:21 Dose: 40 mg Melatonin (Melatonin 3 Mg Tablet) 6 mg PO BEDTIME PRN PRN Reason: Insomnia Methadone HCl (Methadone Hcl 20 Mg/2 Ml Oral.Conc) 50 mg PO DAILY [facility] Last Admin: 02/01/22 09:21 Dose: 50 mg Nicotine (Nicotine 21 Mg Patch.Td24) 21 mg TRANSDERMA DAILY [facility] Last Admin: 02/01/22 09:21 Dose: 21 mg Quetiapine Fumarate (Quetiapine Fumarate 50 Mg Tablet) 50 mg PO DAILY [facility] Last Admin: 02/01/22 09:23 Dose: Not Given Quetiapine Fumarate (Quetiapine Fumarate 100 Mg Tablet) 100 mg PO BEDTIME [facility] Last Admin: 01/31/22 20:11 Dose: 100 mg Senna (Sennosides 8.6 Mg Tablet) 17.2 mg PO BEDTIME PRN PRN Reason: Constipation Sodium Chloride (0.9 % Sodium Chloride Flush 3 Ml Syringe) 3 ml IVFLUSH QSHIFT [facility] Last Admin: 02/01/22 09:20 Dose: 3 ml Allergies Allergies Allergy/AdvReac Type Severity Reaction Status Date / Time lisinopril [LISINOPRIL] Allergy Unknown KIDNEY Verified 01/30/22 10:22 FAILURE codeine [CODEINE] AdvReac Unknown RASH Verified 01/30/22 10:22 hydrocodone [From VICODIN] AdvReac Unknown RASH Verified 01/30/22 10:22 ibuprofen [IBUPROFEN] AdvReac Unknown EDEMA Verified 01/30/22 10:22 Assessment & Plan Assessment & Plan (1) Opioid use disorder: Status: Acute Code(s): F11.90 - Opioid use, unspecified, uncomplicated Assessment and Plan: * last dose letter provided * intake with [facility] today at 1pm * no further followup needed * take home narcan ordered. I spent ___55___ minutes with the patient and/or on the patient floor today, greater than?50% of which was spent counseling/coordinating care.
== END 2022-02-01 12:47 | disposition home or self-care (01) | DRG 683 ==
LOC: HO.ED 01-30 05:51 → HO.EDOVER 01-30 06:03 → HO.IMC 01-31 17:14
PROVIDERS: Emergency Medicine; Admitting Provider Hospitalist; Emergency Provider Internal Medicine; Visit Provider Internal Medicine
DX: N17.9 Acute kidney failure, unspecified (principal); F11.23 Opioid dependence with withdrawal; F17.210 Nicotine dependence, cigarettes, uncomplicated; F32.A Depression, unspecified; Z20.822 Contact with and (suspected) exposure to COVID-19; Z88.5 Allergy status to narcotic agent; Z88.6 Allergy status to analgesic agent; Z88.8 Allergy status to other drugs, medicaments and biological substances; Z79.899 Other long term (current) drug therapy
CPT/HCPCS: 36415; 80048; 80307; 81001; 81003; 82077; 82550; 85025; 85027; 87635; 93005; 99285; J1650